=== PATIENT | male | born 1995 | race Caucasian/White ===

== ENCOUNTER 2021-02-09 09:02 | Outpatient (REF) | payer OTHER, SELFPAY ==
[2021-02-09 09:49] LABS: MANUAL DIFF FLAG NO
[2021-02-09 10:21] LABS: Basophils Percent Auto 0.3 % (0-2); Eosinophils Absolute Auto 0.1 X10*3/uL (0.0-0.4); Eosinophils Percent Auto 2.1 % (0-4); Hemoglobin 15.2 g/dl (14.0-18.0); Imm Gran Abs Auto 0.04 X10*3/uL (0.00-0.03); Imm Gran Pct Auto 0.7 % (0.0-0.4); Lymphocytes Absolute Auto 1.5 X10*3/uL (1.2-4.9); Lymphocytes Percent Auto 24.3 % (20-40); Mean Corpuscular Hemoglobin 27.5 pg (27.0-33.0); Mean Corpuscular Volume 83.2 fL (80-98); Mean Platelet Volume 9.7 fL (9.4-12.4); Monocytes Absolute Auto 0.5 X10*3/uL (0.1-1.2); Monocytes Percent Auto 8.1 % (2-11); Neutrophils Absolute Auto 3.9 X10*3/uL (2.0-8.3); Neutrophils Percent Auto 64.5 % (45-73); Platelet Count 287 X10*3/uL (160-400); Red Blood Count 5.53 X10*6/uL (4.60-5.80); Red Cell Distribution Width 12.3 % (11.0-16.0); White Blood Count 6.1 X10*3/uL (4.8-10.8)
[2021-02-09 10:58] LABS: Free T4 (Free Thyroxine) 0.71 ng/dL (0.71-1.85); Thyroid Stimulating Hormone 0.82 uIU/mL (0.32-4.0)
[2021-02-09 11:01] LABS: Alanine Aminotransferase 134 U/L (0-40); Albumin Level 4.5 g/dL (3.5-5.0); Alkaline Phosphatase 128 U/L (39-117); Anion Gap 13 (12-20); Aspartate Amino Transferase 39 U/L (5-37); Bilirubin Total 0.7 mg/dL (0.0-1.0); Blood Urea Nitrogen 15 mg/dL (9-16); Calcium 9.4 mg/dL (8.4-10.2); Carbon Dioxide 28 mmol/L (22-29); Chloride 104 mmol/L (96-108); Cholesterol 182 mg/dL; Estimated Glomerular Filt Rate > 60; Glucose Random 92 mg/dL (60-115); HDL Cholesterol 38 mg/dL; LDL Cholesterol Calculated 116 mg/dl; Potassium 4.7 mmol/L (3.3-5.1); Sodium 140 mmol/L (135-145); Total Protein 7.4 g/dL (6.5-8.0); Triglycerides 140 mg/dL; Uric Acid 5.3 mg/dL (3.4-7.0)
[2021-02-09 11:37] LABS: Erythrocyte Sedimentation Rate 5 MM/HR (0-15)
== END 2021-02-09 09:03 | disposition home or self-care (01) ==
LOC: HO.LAB 09:02
PROVIDERS: PCP Internal Medicine; Visit Provider Internal Medicine
DX: E78.00 Pure hypercholesterolemia, unspecified (principal); K21.9 Gastro-esophageal reflux disease without esophagitis; R61 Generalized hyperhidrosis
CPT/HCPCS: 36415; 80053; 80061; 84439; 84443; 84550; 85025; 85652

== ENCOUNTER 2021-02-18 10:20 | Outpatient (REF) | payer OTHER, SELFPAY ==
[2021-02-18 11:24] LABS: Alanine Aminotransferase 82 U/L (0-40); Albumin Level 4.4 g/dL (3.5-5.0); Alkaline Phosphatase 117 U/L (39-117); Aspartate Amino Transferase 26 U/L (5-37); Bilirubin Direct 0.2 mg/dL (0.0-0.5); Bilirubin Total 0.2 mg/dL (0.0-1.0)
[2021-02-18 11:44] LABS: HBc Num1 0.07 S/CO (0.00-0.79); Hepatitis B Core Antibody Nonreactive (Nonreactive); ~Hepatitis B Surface Antibody NONREACTIVE (Nonreactive)
[2021-02-18 11:49] LABS: HBsAGNum1 0.16 S/CO (0.00-0.99); Hepatitis B Surface Antigen Negative (Negative)
[2021-02-18 12:23] LABS: ~HepC Num1 0.12 S/CO (0.00-0.79); ~Hepatitis C Antibody Nonreactive (Nonreactive)
== END 2021-02-18 10:21 | disposition home or self-care (01) ==
LOC: HO.LAB 10:20
PROVIDERS: PCP Internal Medicine; Visit Provider Internal Medicine
DX: R94.5 Abnormal results of liver function studies (principal); R79.89 Other specified abnormal findings of blood chemistry
CPT/HCPCS: 36415; 80076; 86704; 86706; 86803; 87340

== ENCOUNTER 2021-02-19 14:30 | Outpatient (REF) | payer OTHER, SELFPAY ==
--- NOTE | ~2021-02-19 | US_ITS ---
EXAMINATION: US ABDOMEN LIMITED CLINICAL INFORMATION: Other specified abnormal findings of blood chemistry. COMPARISON: None TECHNIQUE: Real-time imaging of the right upper quadrant abdominal viscera. FINDINGS: PANCREAS: Normal. LIVER: The liver is normal in size. The liver contour is normal. Echotexture is slightly increased. No focal hepatic lesion. There is no intrahepatic biliary duct dilatation seen. GALLBLADDER: Normal. The gallbladder is physiologically distended without evidence of stones, sludge, polyps, wall thickening or pericholecystic fluid. COMMON BILE DUCT: Normal in caliber measuring 0.2 cm in diameter. RIGHT KIDNEY: Normal. No hydronephrosis. No renal calculi or focal parenchymal lesions. The kidney measures 11.0 cm in maximum dimension. FREE FLUID: None. US/US abdomen limited IMPRESSION: Slightly echogenic liver. This is nonspecific but most commonly related to fatty infiltration.
== END 2021-02-19 14:31 | disposition home or self-care (01) ==
LOC: HO.HMGCX 14:30
PROVIDERS: PCP Internal Medicine; Visit Provider Internal Medicine
DX: R79.89 Other specified abnormal findings of blood chemistry (principal)
CPT/HCPCS: 76705

== ENCOUNTER → 2021-11-21 08:41 | Outpatient (BNVA) | payer OTHER, SELFPAY | PROVIDERS: PCP Internal Medicine; Visit Provider Dietitian, Registered | DX: E66.9 Obesity, unspecified (principal); Z68.31 Body mass index [BMI] 31.0-31.9, adult | CPT/HCPCS: 97802 ==

== ENCOUNTER → 2022-01-24 09:17 | Outpatient (BNVA) | payer OTHER, SELFPAY | PROVIDERS: PCP Internal Medicine; Visit Provider Dietitian, Registered | DX: E66.9 Obesity, unspecified (principal); Z68.30 Body mass index [BMI] 30.0-30.9, adult; Z71.3 Dietary counseling and surveillance | CPT/HCPCS: 97803 ==

== ENCOUNTER → 2022-03-27 12:30 | Outpatient (BNVA) | payer OTHER, SELFPAY | PROVIDERS: PCP Internal Medicine; Visit Provider Dietitian, Registered | DX: Z13.89 Encounter for screening for other disorder (principal) | CPT/HCPCS: 97803 ==

== ENCOUNTER → 2022-06-26 13:33 | Outpatient (BNVA) | payer OTHER, SELFPAY | PROVIDERS: PCP Internal Medicine; Visit Provider Dietitian, Registered | DX: E66.9 Obesity, unspecified (principal) | CPT/HCPCS: 97803 ==

== ENCOUNTER 2022-10-18 08:28 | Outpatient (REF) | payer OTHER, SELFPAY ==
[2022-10-18 09:00] LABS: MANUAL DIFF FLAG NO
[2022-10-18 09:49] LABS: Basophils Percent Auto 0.7 % (0-2); Eosinophils Absolute Auto 0.1 X10*3/uL (0.0-0.4); Eosinophils Percent Auto 2.2 % (0-4); Hematocrit 46.4 % (42.0-52.0); Hemoglobin 15.6 g/dl (14.0-18.0); Imm Gran Abs Auto 0.04 X10*3/uL (0.00-0.03); Imm Gran Pct Auto 0.7 % (0.0-0.4); Lymphocytes Absolute Auto 1.6 X10*3/uL (1.2-4.9); Lymphocytes Percent Auto 27.2 % (20-40); Mean Corpuscular HGB Conc 33.6 g/dl (31.0-36.0); Mean Corpuscular Hemoglobin 27.5 pg (27.0-33.0); Mean Corpuscular Volume 81.8 fL (80.0-98.0); Mean Platelet Volume 9.7 fL (9.4-12.4); Monocytes Absolute Auto 0.6 X10*3/uL (0.1-1.2); Monocytes Percent Auto 9.3 % (2-11); Neutrophils Absolute Auto 3.6 x10*3/uL (2.0-8.3); Neutrophils Percent Auto 59.9 % (45-73); Platelet Count 309 X10*3/uL (160-400); Red Blood Count 5.67 X10*6/uL (4.60-5.80); Red Cell Distribution Width 12.7 % (11.0-16.0); White Blood Count 5.9 X10*3/uL (4.8-10.8)
[2022-10-18 10:18] LABS: Estimated Average Glucose 105 mg/dL; Hemoglobin A1c % 5.3 %
[2022-10-18 10:49] LABS: Alanine Aminotransferase 112 U/L (0-40); Albumin Level 4.7 g/dL (3.5-5.0); Alkaline Phosphatase 120 U/L (39-117); Anion Gap 15 (12-20); Aspartate Amino Transferase 33 U/L (5-37); Bilirubin Total 0.7 mg/dL (0.0-1.0); Blood Urea Nitrogen 15 mg/dL (9-16); Carbon Dioxide 26 mmol/L (22-29); Chloride 103 mmol/L (96-108); Cholesterol 210 mg/dL; Estimated Glomerular Filt Rate > 60; Glucose Random 95 mg/dL (60-115); HDL Cholesterol 35 mg/dL; LDL Cholesterol Calculated 145 mg/dl; Potassium 4.3 mmol/L (3.3-5.1); Sodium 140 mmol/L (135-145); Total Protein 7.6 g/dL (6.5-8.0); Triglycerides 152 mg/dL
[2022-10-18 10:59] LABS: Free T4 (Free Thyroxine) 0.81 ng/dL (0.71-1.85); Thyroid Stimulating Hormone 0.83 uIU/mL (0.32-4.0)
[2022-10-20 05:09] LABS: HBS Num1 1.01 mIU/mL (0-7.99); HBc Num1 0.07 S/CO (0.00-0.79); HIV AB/AG Nonreactive (Nonreactive); HIV Num 1 0.07 S/CO (0.00-0.99); Hepatitis B Core Antibody Nonreactive (Nonreactive); Hepatitis B Surface Antigen Negative (Negative); ~HepC Num1 0.08 S/CO (0.00-0.79); ~Hepatitis B Surface Antibody NONREACTIVE (Nonreactive); ~Hepatitis C Antibody Nonreactive (Nonreactive)
[2022-10-20 05:17] LABS: Syphilis Screen Nonreactive (Nonreactive)
[2022-10-24 15:11] LABS: Glucose-6-Phosphate Dehydrogen 25.7 U/g Hgb (7.0-20.5)
== END 2022-10-18 08:29 | disposition home or self-care (01) ==
LOC: HO.LAB 08:28
PROVIDERS: PCP Internal Medicine; Visit Provider Internal Medicine
DX: Z11.4 Encounter for screening for human immunodeficiency virus [HIV] (principal); K76.0 Fatty (change of) liver, not elsewhere classified; E78.00 Pure hypercholesterolemia, unspecified; R79.89 Other specified abnormal findings of blood chemistry
CPT/HCPCS: 36415; 80053; 80061; 82955; 83036; 84439; 84443; 85025; 86704; 86706; 86780; 86803; 87340; 87389

== ENCOUNTER 2022-10-22 08:48 | Outpatient (REF) | payer OTHER, SELFPAY | END 2022-10-22 08:49 | disposition home or self-care (01) | LOC: HO.LAB 08:48 | PROVIDERS: PCP Internal Medicine; Visit Provider Internal Medicine | DX: Z13.89 Encounter for screening for other disorder (principal) ==

== ENCOUNTER 2022-10-24 11:30 | Outpatient (REF) | payer OTHER, SELFPAY ==
[2022-10-27 00:11] LABS: TS Negative Control Passed; TS Panel A 0; TS Panel B 0; TS Positive Control Passed; TSpotTB Negative (Negative)
== END 2022-10-24 11:31 | disposition home or self-care (01) ==
LOC: HO.LAB 11:30
PROVIDERS: PCP Internal Medicine; Visit Provider Internal Medicine
DX: Z11.1 Encounter for screening for respiratory tuberculosis (principal); K76.0 Fatty (change of) liver, not elsewhere classified
CPT/HCPCS: 36415; 86481

== ENCOUNTER 2022-11-28 17:40 | Outpatient (REF) | payer OTHER, SELFPAY ==
[2022-11-28 18:32] LABS: Influenza A PCR NEGATIVE (Negative); Influenza B PCR NEGATIVE (Negative); Resp Syncy Virus RNA Qual PCR NEGATIVE (Negative); SARS COV2 PCR INHOUSE NEGATIVE (Negative)
== END 2022-11-28 17:41 | disposition home or self-care (01) ==
LOC: HO.LNP 17:40
PROVIDERS: Visit Provider Physician Assistant Medical
DX: Z20.822 Contact with and (suspected) exposure to COVID-19 (principal); R05.9 Cough, unspecified
CPT/HCPCS: 0241U

== ENCOUNTER 2022-12-20 09:01 | Outpatient (REF) | payer OTHER, SELFPAY ==
[2022-12-20 11:03] LABS: HBc Num1 0.06 S/CO (0.00-0.79); HBsAGNum1 0.31 S/CO (0.00-0.99); HIV AB/AG Nonreactive (Nonreactive); HIV Num 1 0.06 S/CO (0.00-0.99); Hepatitis B Core Antibody Nonreactive (Nonreactive); Hepatitis B Surface Antigen Negative (Negative); ~HepC Num1 0.11 S/CO (0.00-0.79); ~Hepatitis B Surface Antibody NONREACTIVE (Nonreactive); ~Hepatitis C Antibody Nonreactive (Nonreactive)
[2022-12-25 20:38] LABS: Treponema pallidum Ab FTA ABS Nonreactive (Nonreactive)
[2022-12-26 16:28] LABS: FIB-ALT 83 U/L (9-46); FIB-Alpha-2-Macroglobulin 170 mg/dL (106-279); FIB-Apolipoprotein A1 141 mg/dL (94-176); FIB-GGT 68 U/L (3-70); FIB-Haptoglobin 182 mg/dL (43-212); FIB-Total Bilirubin 0.5 mg/dL (0.2-1.2); Liver Fibrosis Score 0.12; Liver Fibrosis Stage F0; Nec Inflam Act Grade A1-A2; Nec Inflam Act Score 0.42
== END 2022-12-20 09:02 | disposition home or self-care (01) ==
LOC: HO.LAB 09:01
PROVIDERS: PCP Internal Medicine; Visit Provider Internal Medicine
DX: Z11.4 Encounter for screening for human immunodeficiency virus [HIV] (principal); R79.89 Other specified abnormal findings of blood chemistry; K76.0 Fatty (change of) liver, not elsewhere classified
CPT/HCPCS: 36415; 81596; 86704; 86706; 86780; 86803; 87340; 87389

== ENCOUNTER → 2023-03-09 13:54 | Outpatient (BNVA) | payer OTHER, SELFPAY | PROVIDERS: PCP Internal Medicine; Visit Provider Dietitian, Registered | DX: E66.9 Obesity, unspecified (principal); Z68.33 Body mass index [BMI] 33.0-33.9, adult | CPT/HCPCS: 97803 ==

== ENCOUNTER 2023-08-13 10:05 | Outpatient (AMB) | payer OTHER, SELFPAY ==
[2023-08-13 10:08] VITALS: BP 150/90; PULSE 81; O2SAT 97; BMI 34.0
--- NOTE | 2023-08-13 10:08 | MHC.PC.OV ---
Vital Signs 08/13/23 10:08 Height 6 ft Weight 251 lb 0.2 oz BMI 34.0 BP 150/90 H Blood Pressure Location Lt brachial Position Sitting Pulse 81 Pulse Source Pulse Oximeter Temp Source Skin Pulse Oximetry (%) 97 Oxygen Delivery Method Room Air Intake Visit Reasons: Discuss PMFLA paperwork Donkey Doctor Required: No Allergies No Known Allergies Allergy (Verified 08/13/23 10:23) Medication List - Last Reconciled 08/13/23 by TENZIN Youngblood escitalopram oxalate 10 mg PO DAILY Tobacco use date assessed: 08/13/23 Dental Screening Dental Screen Date: 08/13/23 Did you have a dental visit in the last 12 months?: Yes Did you have a dental problem in the last 6 months where you did not have access to dental care?: No Was dental information given to patient?: Patient has dentist HPI Discuss PMFLA paperwork HPI Details Patient is a 27-year-old male who presents today for an office visit to discuss FMLA paperwork for 5 weeks due to his mental health. Patient of Dr. Fang. Medical history significant for GERD obesity, adjustment disorder, anxiety, depression. Patient reports that he did have counseling in the past, and 5 months ago his insurance was changed and he is now on a waiting list for counseling at [facility]. Patient reports that he is compliant with escitalopram 10 mg daily. 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 PHQ-9 score 17, KYLE-7 score 16, patient denies SI. Patient reports that his symptoms are anxiousness/restlessness, irritability, sadness, constant worry, a perpetual sense of fear, inability to concentrate, lack of motivation, reduced work performance, unbalanced personal life, insomnia, frequent headaches, muscle pains, changes in appetite, nausea, digestive problems. He reports the symptoms for the past some time now. Patient also reports left ear mild discomfort for the past some time. [facility] Medical History (Updated 08/13/23 @ 12:52 by TENZIN Youngblood) Ingrowing nail, right great toe Impacted cerumen of both ears Hyperhidrosis Hyperhidrosis ADHD Asthma Surgical History History of cataract surgery Social History Housing: Apartment Alcohol intake: current Patient Tobacco Use Status: Never used Tobacco Years Smoked: 2 cigarettes in li e-Cigarette/Vaping Use: Never Used Second Hand Smoke Exposure: No Current occupational status: employed Cognitive needs: No Hearing needs: No Vision needs: Yes Questionnaire PHQ-9 Over the last 2 weeks, how often have you been bothered by any of the following problems? 1. Little interest or pleasure in doing things: more than half the days 2. Feeling down, depressed, or hopeless: more than half the days 3. Trouble falling or staying asleep, or sleeping too much: more than half the days 4. Feeling tired or having little energy: more than half the days 5. Poor appetite or overeating: nearly every day 6. Feeling bad about yourself - or that you are a failure or have let yourself or your family down: nearly every day 7. Trouble concentrating on things, such as reading the newspaper or watching television: several days 8. Moving or speaking so slowly that other people could have noticed. Or the opposite - being so fidgety or restless that you have been moving around a lot more than usual: more than half the days 9. Thoughts that you would be better off or of hurting yourself in some way: not at all Total score: 17 Depression Screening Interpretation: Positive Depression Screening Follow-up: Other (on waiting list for counseling at [facility] ) [address]94 - PHQ-9 Billing: Yes Source: Developed by Drs. Calvin Em, Alejandra Keys, Randall Hussein and colleagues, with an educational ld from [employer]. Thrive Questionnaire Date Thrive assessed: 08/13/23 I am a: Patient What is your living situation today?: I have a steady place to live Within the past 12 months, did the food you bought not last and you didn't have the money to get more?: Never true Within the past 12 months, did you worry whether your food would run out before you got money to buy more?: Never true Currently or been in a relationship where the following occur: no concerns reported AUDIT C Alcohol Use Questionnaire (AUDIT-C) 1. How often do you have a drink containing alcohol?: Monthly or less 2. How many drinks containing alcohol do you have on a typical day when you are drinking?: 1 or 2 3. How often do you have six or more drinks on one occasion?: Never Total Score: 1 Score Reviewed/Action Taken: No KYLE-7 AMB Questionnaire KYLE-7 Date KYLE - 7 assessed: 08/13/23 Feeling nervous, anxious, or on edge: 3 = Nearly every day Not being able to stop or control worryin = Nearly every day Worrying too much about different things: 3 = Nearly every day Trouble relaxin = Several days Being so restless that it is hard to sit still: 2 = More than half the days Becoming easily annoyed or irritable: 3 = Nearly every day Feeling afraid as if something awful might happen: 1 = Several days Total KYLE-7 score (0-4 normal; 5-9 mild; 10-14 moderate; 15-21 severe): 16 Source: Developed by Drs. Calvin Em, Alejandra Keys, Randall Hussein and colleagues, with an educational ld from [employer]. KYLE-7 Assessment Billing KYLE-7 Assessment Tool: KYLE-7 Assessment 24009 Review of Systems Const Denies body aches, Denies chills, Denies fever(s) and Reports headache(s) (Intermittent) Eyes Denies change in vision ENT Reports as per HPI, Denies dizziness, Reports headache(s) (Intermittent), Denies nasal discharge, Denies sinus pain and Denies sore throat Card Denies chest pain, Denies edema, Denies lightheadedness and Denies dyspnea Resp Denies cough, Denies dyspnea and Denies wheezing GI Denies abdominal pain and Reports nausea Denies dysuria Musc Denies myalgias Skin/Breast Denies rash Neuro Denies dizziness and Reports headache(s) (Intermittent) Psych Reports as per HPI, Reports anxiety and Reports depression Aller/Immun Denies wheezing Physical exam (Primary Care) Vital Signs: Last Vital Signs Pulse 81 08/13/23 10:08 BP 150/90 H 08/13/23 10:08 Pulse Ox 97 08/13/23 10:08 Oxygen Delivery Method Room Air 08/13/23 10:08 BMI result Body Mass Index 34.0 Tobacco/Smoking Status: Tobacco use Status Tobacco use date assessed 08/13/23 08/13/23 10:16 Patient Tobacco Use Status Never used Tobacco 09/14/23 10:16 e-Cigarette/Vaping Use Never Used 08/13/23 10:16 PHQ-9: PHQ-9 Score PHQ-9: Total score 17 08/13/23 10:21 Depression Screening Interpretation: Positive Depression Screening Follow-up: Other (on waiting list for counseling at [facility] ) Thrive Assessment: Date of Thrive Assessment Date Thrive assessed 08/13/23 08/13/23 10:21 Currently or been in a relationship where the following occur: no concerns reported Const General: cooperative and no acute distress Orientation/consciousness: patient oriented x3 HENMT Other: Right TM normal Left TM with mild fluid behind TM, no erythema Head: Yes normocephalic and Yes atraumatic Throat: Yes posterior oropharynx normal Eyes General: appearance normal, both eyes and all related structures Neck Neck: Yes normal visual inspection, Yes full ROM and Yes no lymphadenopathy Resp Effort & Inspection: normal respiratory effort and able to speak in complete sentences Auscultation: clear to auscultation bilaterally, no crackles, no rales, no rhonchi and no wheezes Cardio Rate: regular rate Rhythm: regular rhythm Heart sounds: S1 normal heart sound present and S2 normal heart sound present GI Auscultation: normal bowel sounds Skin General skin exam: no rashes or lesions noted Neuro General: patient oriented x3 Gait exam (Neuro): Normal gait present Extrem General: Yes full ROM and No edema Assessment and Plan Assessment & Plan (1) Depression: Code(s): F32.A - Depression, unspecified Qualifiers: Depression Type: other depression Qualified Code(s): F32.89 - Other specified depressive episodes Plan: Continue escitalopram 10 mg daily Patient is on waiting list for therapist at [facility] Patient also has a referral to Psychiatry, will follow-up on this FMLA provided for 5 weeks for mental health, see scanned documents. Patient reports that he has crisis phone number (2) Anxiety: Code(s): F41.9 - Anxiety disorder, unspecified Plan: Same as above (3) Discomfort of left ear: Code(s): H92.02 - Otalgia, left ear Plan: No need for antibiotic Encouraged patient to try [id number] Flonase nasal spray daily for 2 weeks and Claritin 1 tablet daily for 1 week. Patient agreed with the plan Plan Keep appointment with PCP as scheduled or follow-up sooner as needed Coding Level of Care Code Est Pt Level 3 (05798) Diagnoses Other depression F32.89 Depression Type: other depression Anxiety F41.9 Discomfort of left ear H92.02 Additional Codes KYLE-7 Assessment Billing - KYLE-7 Assessment Tool: KYLE-7 Assessment 47983 ([id number])
== END 2023-08-13 10:46 | disposition home or self-care (01) ==
PROVIDERS: PCP Internal Medicine; Visit Provider Nurse Practitioner Family
DX: F32.89 Other specified depressive episodes (principal); F41.9 Anxiety disorder, unspecified; H92.02 Otalgia, left ear
CPT/HCPCS: 99213

== ENCOUNTER 2023-08-31 14:28 | Outpatient (AMB) | payer OTHER, SELFPAY ==
[2023-08-31 14:33] VITALS: BMI 34.2
--- NOTE | 2023-08-31 14:33 | A.OFFVIS_ITS ---
Intake VS Expanded 08/31/23 14:33 Height 6 ft Weight 252 lb 3.341 oz BMI 34.2 Intake Visit Reasons: obesity/high chol/LVM Allergies No Known Allergies Allergy (Verified 08/13/23 10:23) HPI Nutrition Presentation Details Pt presents for MNT for obesity . Pt has hx of depression, anxiety. Pt acknowledges having increased appetite, his girlfriend helps him with meal preparation and portioning of foods. Pt reports he will soon to be a father, girlfriend is 6 month preg He reports he is trying to participate in physical activity : 2-3 times/wk, 15- 20 minutes cardio/weight lifting 200lbs Pt reports keeping track of calories helped in the past but stopped keeping track d/t anxiety He acknowledges choosing second servings of meals and increasing on snacks (fritters) Pt recognizes meal patterns that have changed: was choosing vegetarian meals more often and he is no longer including fish , notices having second servings of meals Most Recent Diabetes Results: Cholesterol 210 mg/dL 10/18/22 HDL Cholesterol 35 mg/dL 10/18/22 Triglycerides 152 mg/dL 10/18/22 Creatinine 1.14 mg/dL (0.5-1.4) 10/18/22 Blood Urea Nitrogen 15 mg/dL (9-16) 10/18/22 Sodium 140 mmol/L (135-145) 10/18/22 Potassium 4.3 mmol/L (3.3-5.1) 10/18/22 Chloride 103 mmol/L (96-108) 10/18/22 Carbon Dioxide 26 mmol/L (22-29) 10/18/22 Calcium 10.0 mg/dL (8.4-10.2) 10/18/22 AST 33 U/L (5-37) 10/18/22 ALT 112 U/L (0-40) H 10/18/22 Total Protein 7.6 g/dL (6.5-8.0) 10/18/22 Albumin 4.7 g/dL (3.5-5.0) 10/18/22 [facility] Medical History Ingrowing nail, right great toe Impacted cerumen of both ears Hyperhidrosis Hyperhidrosis ADHD Asthma Surgical History History of cataract surgery Social History Housing: Apartment Alcohol intake: current Patient Tobacco Use Status: Never used Tobacco Years Smoked: 2 cigarettes in li e-Cigarette/Vaping Use: Never Used Second Hand Smoke Exposure: No Current occupational status: employed Cognitive needs: No Hearing needs: No Vision needs: Yes Assessment & Plan Assessment & Plan (1) Obesity (BMI 30-39.9): Code(s): E66.9 - Obesity, unspecified Plan Reduction of calories by 500 est kcal needs <2500 [address] jeor est fluid needs 25 ml/kg bw: 2600 ml/d est prot needs as per 1 g/kg bw: 106 g/d fiber: 30-38 g as tolerated NA< 2000 mg/d Educate patient on: (R= Reviewed, V = verbalizes understanding N/R= Needs review N/A= not applicable) * Food sources of carbohydrates and serving adequate serving sizes : R V * Difference between complex carbohydrates and simple carbohydrates, role of fiber: R V * Differences between fats (MUFA/PUFA/saturated fats, trans fats) and food sources of various fats: R V * Food sources of sodium and salt and healthy modifications for heart health and kidney health: R V * Vitamins and minerals: R V * How to interpret food labels: R V * Healthy Plate method concept: R V * Physical activity: benefits and precaution: R V Patient Instructions: Have a meal replacement instead of skipping melas have fish at least twice a week, replacing higher fat protein foods (beef/pork) Reduce on fried food (1 fritter vs 2) Coding Level of Care Code Nutr Indiv Subseq (16120) Diagnoses Obesity (BMI 30-39.9) E66.9 Time Spent (min) 30
== END 2023-08-31 15:13 | disposition home or self-care (01) ==
PROVIDERS: PCP Internal Medicine; Referring Provider Internal Medicine; Visit Provider Dietitian, Registered
DX: E66.9 Obesity, unspecified (principal)

== ENCOUNTER → 2023-08-31 14:28 | Outpatient (BNVA) | payer OTHER, SELFPAY | PROVIDERS: Visit Provider Dietitian, Registered | DX: E66.9 Obesity, unspecified (principal); Z68.34 Body mass index [BMI] 34.0-34.9, adult; Z71.3 Dietary counseling and surveillance | CPT/HCPCS: 97803 ==

== ENCOUNTER 2023-10-29 12:32 | Outpatient (AMB) | payer OTHER, SELFPAY ==
[2023-10-29 12:36] VITALS: BP 128/76; PULSE 92; O2SAT 98; BMI 33.6
--- NOTE | 2023-10-29 12:36 | MHC.PC.OV ---
Vital Signs 10/29/23 12:36 Height 6 ft Weight 248 lb BMI 33.6 BP 128/76 Blood Pressure Location Lt brachial Position Sitting Pulse 92 Pulse Source Pulse Oximeter Pulse Oximetry (%) 98 Oxygen Delivery Method Room Air Intake Visit Reasons: Physical exam Allergies No Known Allergies Allergy (Verified 10/29/23 12:37) Medication List - Last Reconciled 10/29/23 by Isaura Fang MD escitalopram oxalate 10 mg PO DAILY Tobacco use date assessed: 08/13/23 Dental Screening Dental Screen Date: 10/29/23 Did you have a dental visit in the last 12 months?: Yes Did you have a dental problem in the last 6 months where you did not have access to dental care?: No Was dental information given to patient?: Patient has dentist HPI Physical exam HPI Details 27-year-old obese male with hypercholesterolemia fatty liver GERD and adjustment disorder last seen in October 2022. Patient is here for physical exam review of the notes patient was seen by the nurse practitioner in July 2023 regarding the FMLA due to mental health. Did have some counseling before on escitalopram. groin irritaiton. [facility] Medical History Ingrowing nail, right great toe Impacted cerumen of both ears Hyperhidrosis Hyperhidrosis ADHD Asthma Surgical History History of cataract surgery Social History (Updated 10/29/23 @ 12:54 by Isaura Fang MD) Housing: Apartment Alcohol intake: current Comment: once Q 3 months 1-2 cups Patient Tobacco Use Status: Never used Tobacco Years Smoked: 2 cigarettes in li e-Cigarette/Vaping Use: Never Used Second Hand Smoke Exposure: No Current occupational status: employed Cognitive needs: No Hearing needs: No Vision needs: Yes Questionnaire PHQ-9 Over the last 2 weeks, how often have you been bothered by any of the following problems? 1. Little interest or pleasure in doing things: more than half the days 2. Feeling down, depressed, or hopeless: more than half the days 3. Trouble falling or staying asleep, or sleeping too much: more than half the days 4. Feeling tired or having little energy: more than half the days 5. Poor appetite or overeating: nearly every day 6. Feeling bad about yourself - or that you are a failure or have let yourself or your family down: nearly every day 7. Trouble concentrating on things, such as reading the newspaper or watching television: several days 8. Moving or speaking so slowly that other people could have noticed. Or the opposite - being so fidgety or restless that you have been moving around a lot more than usual: more than half the days 9. Thoughts that you would be better off or of hurting yourself in some way: not at all Total score: 17 Depression Screening Interpretation: Positive Depression Screening Follow-up: Other (on waiting list for counseling at [facility] ) Depression Screening Done: Yes 31417 - PHQ-9 Billing: Yes Source: Developed by Drs. Calvin Em, Alejandra Keys, Randall Hussein and colleagues, with an educational ld from [employer]. Thrive Questionnaire Date Thrive assessed: 08/13/23 AUDIT C Alcohol Use Questionnaire (AUDIT-C) 1. How often do you have a drink containing alcohol?: Monthly or less 2. How many drinks containing alcohol do you have on a typical day when you are drinking?: 1 or 2 3. How often do you have six or more drinks on one occasion?: Never Total Score: 1 Score Reviewed/Action Taken: No KYLE-7 AMB Questionnaire KYLE-7 Date KYLE - 7 assessed: 08/13/23 Source: Developed by Drs. Calvin Em, Alejandra Keys, Randall Hussein and colleagues, with an educational ld from [employer]. Review of Systems Const Denies poor appetite and Denies weakness Eyes Denies no additional complaints ENT Reports Normal hearing present, Denies dizziness, Denies nasal congestion, Denies tinnitus and Denies sore throat Card Denies chest pain, Denies syncope, Denies rapid heart rate and Denies dyspnea Resp Denies cough and Denies dyspnea GI Denies change in stool character, Reports constipation, Denies diarrhea, Denies nausea and Denies vomiting Denies dysuria and Denies urinary frequency Neuro Reports Normal hearing present, Denies confusion, Denies dizziness, Denies syncope and Denies weakness Psych Denies confusion Physical exam (Primary Care) Vital Signs: Oxygen Delivery Method Room Air 10/29/23 12:36 Tobacco/Smoking Status: Tobacco use Status Tobacco use date assessed 08/13/23 10/29/23 12:38 Patient Tobacco Use Status Never used Tobacco 10/29/23 12:38 e-Cigarette/Vaping Use Never Used 10/29/23 12:38 PHQ-9: PHQ-9 Score PHQ-9: Total score 17 10/29/23 12:38 Depression Screening Interpretation: Positive Depression Screening Follow-up: Other (on waiting list for counseling at [facility] ) Thrive Assessment: Date of Thrive Assessment Date Thrive assessed 08/13/23 10/29/23 12:38 Const General: No confusion Orientation/consciousness: No confusion HENMT Head: Yes normocephalic Ears: external ears normal and TM's normal bilaterally Face and sinus: Yes normal facial exam Mouth: moist mucous membranes Throat: Yes tonsils normal Eyes Conjunctivae: conjunctivae normal Pupils: Equal, round and reactive pupils present and Pupil accommodation reflex normal Direct Ophthalmoscopy: normal light reflex Neck Neck: No lymphadenopathy Thyroid: Thyroid normal Chest Chest palpation & inspection: normal inspection of the chest Resp Effort & Inspection: normal respiratory effort and no audible wheezes Auscultation: clear to auscultation bilaterally, no crackles, no wheezes and lung sounds not diminished Cardio Rate: regular rate Rhythm: regular rhythm Peripheral pulses: radial pulses present and dorsalis pedis present GI Palpation (GI): no masses Auscultation: normal bowel sounds and normoactive bowel sounds Rectal Exam - Male: Yes deferred Other: Noted erythematous groin rash 1 cm x 4 cm bilateral Skin General skin exam: no rashes or lesions noted Rashes: no rashes Neuro General: No confusion Cranial nerves: Yes Equal, round and reactive pupils present and Yes Normal hearing present Cognition (Neuro): normal cognition Gait exam (Neuro): Normal gait present Motor exam (neuro): 5/5 motor strength present throughout Deep tendon reflexes (DTR's): Right brachioradialis reflex intensity grade: 2+, Left brachioradialis reflex intensity grade: 2+, Right patellar reflex intensity grade: 2+ and Left patellar reflex intensity grade: 2+ Extrem General: No edema Assessment and Plan Assessment & Plan (1) Annual physical exam: Code(s): Z00.00 - Encounter for general adult medical examination without abnormal findings (2) Obesity (BMI 30-39.9): Code(s): E66.9 - Obesity, unspecified Plan: Diet and exercise (3) GERD (gastroesophageal reflux disease): Code(s): K21.9 - Gastro-esophageal reflux disease without esophagitis Plan: Avoid the foods that causes that usually spicy foods, tomato products, juices, coffee, soda and foods that your sensitive to. After eating do not lie down, allow 3-4 hours before in lie down. And keep the head of bed above 30 degrees to avoid the acid from going up. (4) Fatty liver: Code(s): K76.0 - Fatty (change of) liver, not elsewhere classified Plan: Low-fat diet and exercise (5) Adjustment disorder: Comment: Therapist Fred OLIVA Q 2 week, NOW (09/2023) [facility] Code(s): F43.20 - Adjustment disorder, unspecified Plan: Continue with counseling and therapy (6) Hypercholesterolemia: Code(s): E78.00 - Pure hypercholesterolemia, unspecified Plan: Avoid fried foods, chicken skin, eggs, butter margarine, pastries and meat. Be it pork or beef they have a lot of cholesterol LDL goal of less than 130 and triglyceride of less than 150 (7) Tinea cruris: Code(s): B35.6 - Tinea cruris Orders: Orders Complete Blood Count Auto Diff Today E78.00 - Pure hypercholesterolemia, unspecified Thyroid Stimulating Hormone Today E78.00 - Pure hypercholesterolemia, unspecified Lipid Panel Today E78.00 - Pure hypercholesterolemia, unspecified Comprehensive Met. Panel Today E78.00 - Pure hypercholesterolemia, unspecified Free T4 (Free Thyroxine) Today E78.00 - Pure hypercholesterolemia, unspecified Vitamin B12 and Folate Today E78.00 - Pure hypercholesterolemia, unspecified Medications: New clotrimazole 1% 1 appl topical BID 4 weeks 45 grams 0RF B35.6 - Tinea cruris miconazole nitrate 2% (Zeasorb AF) 1 appl topical BID 85 grams 1RF B35.6 - Tinea cruris Coding Level of Care Code Est Pt Prev Care 18-39y(71814) Diagnoses Annual physical exam Z00.00 Obesity (BMI 30-39.9) E66.9 GERD (gastroesophageal reflux disease) K21.9 Fatty liver K76.0 Adjustment disorder F43.20 Hypercholesterolemia E78.00 Tinea cruris B35.6
== END 2023-10-29 13:08 | disposition home or self-care (01) ==
PROVIDERS: Visit Provider Internal Medicine
DX: Z00.00 Encounter for general adult medical examination without abnormal findings (principal); E66.9 Obesity, unspecified; Z68.33 Body mass index [BMI] 33.0-33.9, adult; K21.9 Gastro-esophageal reflux disease without esophagitis; K76.0 Fatty (change of) liver, not elsewhere classified; F43.20 Adjustment disorder, unspecified; E78.00 Pure hypercholesterolemia, unspecified; B35.6 Tinea cruris
CPT/HCPCS: 99395

== ENCOUNTER 2024-05-30 08:36 | Inpatient (IN) | payer OTHER, SELFPAY ==
[2024-05-30] VITALS (7 sets, daily range): BP systolic 106–150; BP diastolic 61–92; PULSE 80–94; RESP 12–20; TEMP 36.4–36.8; O2SAT 96–99; BMI 33.2
--- NOTE | ~2024-05-30 | XR_ITS ---
EXAMINATION: XR CHEST CLINICAL INFORMATION: Chest pain COMPARISON: None available. TECHNIQUE: Frontal view of the chest was obtained. FINDINGS: vascularity. LUNGS: Lungs are clear. No pneumothorax is seen. BONES: Bony skeleton is intact. XR/XR chest 1V IMPRESSION: Normal chest x-ray.
--- NOTE | ~2024-05-30 | CT_ITS ---
EXAMINATION: CT ANGIOGRAM CHEST CLINICAL INFORMATION: Severe chest pain with radiation to the back COMPARISON: Chest radiograph 05/30/2024 TECHNIQUE: Multiple axial images were obtained through the chest after the administration of 70 mL of Omnipaque 350 intravenous contrast. Extensive vascular post-processing including two-dimensional and three-dimensional reformatted images were created and reviewed on an independent workstation. This CT examination was performed using dose optimization techniques as appropriate, variously including the following: *Automated exposure control *Adjustment of mA and/or kV according to patient size (this includes techniques or standardized protocols for targeted exams where dose is matched to indication/reason for exam; i.e. extremities or head) *Use of iterative reconstruction technique DLP: 403 mGy-cm FINDINGS: The study is mildly motion degraded which partially limits evaluation at the level of the aortic root and proximal ascending aorta. The thoracic aorta is normal in caliber and there is no evidence of dissection or other acute aortic syndrome. There is a three-vessel branching orientation of the aortic arch. The origins the arch vessels and their visualized segments are well-opacified, normal in caliber, and otherwise unremarkable. The partially visualized abdominal aorta is normal in caliber as well. No evidence of aneurysm, dissection or other acute aortic syndrome. The origins of the celiac and superior mesenteric arteries are widely patent and have expected branching pattern. Visualized renal arteries are well opacified without stenosis. The pulmonary arteries are not dilated. The study is not optimized to evaluate the pulmonary arteries, no large central emboli are seen. There is an overall unremarkable appearance of the central venous structures. Lungs well expanded. There is no pulmonary parenchymal mass, consolidation, or discrete suspicious pulmonary nodule. The central and peripheral airways are patent and normal appearing. No pleural effusion. No pleural thickening. The heart is not enlarged. There is no pericardial effusion or pericardial thickening. There are no pathologically enlarged thoracic lymph nodes. The axillae are unremarkable. The visualized thyroid is unremarkable. The structures of the chest wall, including the bones are within normal limits. The incompletely visualized upper abdomen is unremarkable for any significant abnormality. CT/CT angio chest aorta IMPRESSION: Essentially normal CT angiogram of the chest. No definite etiology for patient's current presentation is identified. Fleischner guidelines were followed.
--- NOTE | 2024-05-30 07:00 | CA_ITS ---
Transthoracic Echocardiogram Patient (Last, First, Middle): Mya Hopkins, Gender: Male Date of : 1995 Age: 28 Procedure Date: 05/30/2024 Procedure Type: Transthoracic Echocardiogram Location: ER Height: 182. 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 The visually estimated ejection fraction is between 55-60%. - There is no evidence of regional wall motion abnormalities. - No obvious valvular pathology seen on this study. Findings Procedure Information Contrast agent, definity, is being given per protocol without apparent complications. Left Ventricle Normal left ventricular cavity size. There is normal left ventricular wall thickness. The left ventricular systolic function is normal. The visually estimated ejection fraction is between 55-60%. There is no evidence of regional wall motion abnormalities. Diastolic function is normal for age. Right Ventricle Normal right ventricular cavity size and systolic function. Atria Both atria are normal in size. Aortic Valve There is a normal trileaflet aortic valve. There is no aortic valve stenosis. There is no aortic valve regurgitation. Mitral Valve The mitral valve appears normal. There is no mitral valve regurgitation. There is no mitral valve stenosis. Pulmonic Valve The pulmonic valve is likely normal. Tricuspid Valve Normal tricuspid valve structure. There is trace tricuspid valve regurgitation. There is no evidence of pulmonary hypertension. Great Vessels The asc aorta is normal in size. Venous The inferior vena cava is normal in size and collapses greater than 50% with inspiration. Pericardium/Pleural There is no evidence of pericardial effusion. Prior Study Comparison No prior study available for comparison. Recommendations, Care & Conclusions No obvious valvular pathology seen on this study. Measurements 2D Linear Measurements IVSd: 0.89 0.6-0.9/0.6-1.0 cm LVIDd: 4.85 3.9-5.3/4.2-5.9 cm LVIDd Index: 2.10 2.4-3.2/2.2-3.1 cm/m2 LVIDs: 3.31 2.0-3.6 cm LVPWd: 1.05 0.7-1.1 cm LA Diam: 3.40 2.7-3.8/3.0-4.0 cm LAIDs Index: 1.47 1.5-2.3 cm/m2 LV Mass: 206.20 67-162/88-224 g LV Mass Index: 89.27 43-95/49-115 g/m2 LVOT Diam: 1.90 3.0+(-)1.3 cm Mitral Valve MV Pk E: 0.74 MV PK A: 0.57 MV Decel Time: 261.00 E/A: 1.30 E'Lateral: 12.20 E'Medial: 9.79 E/E' Med: 7.60 E/E' Lat: 6.10 PHT: 76.00 MVA PHT: 2.89 Decel [place]: 2.84 Aortic Valve AoV Pk Jorje: 1.41 AoV Mn Jorje: 1.01 AoV VTI: 0.26 AoV Pk Grad: 8.00 Aov Mn Grad: 5.00 MARTI Cont.VTI: 2.40 LVOT LVOT Pk Jorje: 1.23 LVOT Mn Jorje: 0.88 LVOT VTI: 0.22 LVOT Pk Grad: 6.00 LVOT Mn Grad: 4.00 LVOT Diam: 1.90 LVOT Area: 2.84 Diastolic Function MV Pk E: 0.74 MV Pk A: 0.57 E/A: 1.30 E'Medial: 9.79 E/E' Med: 7.60 E' Laterial: 12.20 E/E' Lat: 6.10 Right Ventricle TAPSE (mm): 17.80 TVS' Jorje: 10.60 Tricuspid Valve TR Pk Jorje: 1.90 TR Pk Grad: 14.00 RA Press: 3.00 RVSP: 17.00 Great Vessels Aorta Sinus of Valsalva: 3.10 2.0-3.5 cm Ao Asc: 2.70 2.1-3.4 cm Pulmonary Valve PV Pk Jorje: 1.02 Peak PV Grad: 4.00 Updated in Other Vendor System with Status of Final Kartik Baltazar MD electronically signed on 05/30/2024 12:32:54 PM with status of Final
--- NOTE | 2024-05-30 08:37 | ECG_ITS ---
Test Reason : CHEST PAIN Blood Pressure : / mmHG Vent. Rate : 081 BPM Atrial Rate : 081 BPM P-R Int : 118 ms QRS Dur : 084 ms QT Int : 368 ms P-R-T Axes : 010 031 033 degrees QTc Int : 427 ms Normal sinus rhythm Normal ECG No previous ECGs available Referred By: Generic ED Physician Electronically Signed By:SAMEER DURON
[2024-05-30 09:04] LABS: MANUAL DIFF FLAG NO
[2024-05-30 09:08] LABS: Basophils Absolute Auto 0.1 X10*3/uL (0.0-0.2); Eosinophils Absolute Auto 0.2 X10*3/uL (0.0-0.4); Eosinophils Percent Auto 2.8 % (0-4); Hematocrit 42.6 % (42.0-52.0); Imm Gran Abs Auto 0.04 X10*3/uL (0.00-0.03); Imm Gran Pct Auto 0.7 % (0.0-0.4); Lymphocytes Absolute Auto 1.5 X10*3/uL (1.2-4.9); Lymphocytes Percent Auto 25.5 % (20-40); Mean Corpuscular HGB Conc 35.2 g/dl (31.0-36.0); Mean Corpuscular Hemoglobin 27.9 pg (27.0-33.0); Mean Corpuscular Volume 79.3 fL (80.0-98.0); Mean Platelet Volume 9.2 fL (9.4-12.4); Monocytes Absolute Auto 0.7 X10*3/uL (0.1-1.2); Monocytes Percent Auto 11.2 % (2-11); Neutrophils Absolute Auto 3.5 x10*3/uL (2.0-8.3); Neutrophils Percent Auto 58.8 % (45-73); Platelet Count 225 X10*3/uL (160-400); Red Blood Count 5.37 X10*6/uL (4.60-5.80); Red Cell Distribution Width 12.8 % (11.0-16.0)
[2024-05-30 09:25] LABS: Alanine Aminotransferase 120 U/L (0-40); Albumin Level 4.5 g/dL (3.5-5.0); Alkaline Phosphatase 130 U/L (39-117); Anion Gap 14 (12-20); Aspartate Amino Transferase 54 U/L (5-37); Bilirubin Total 0.5 mg/dL (0.0-1.0); Blood Urea Nitrogen 14 mg/dL (9-16); Calcium 10.2 mg/dL (8.4-10.2); Carbon Dioxide 22 mmol/L (22-29); Chloride 106 mmol/L (96-108); Creatinine Clr Calc Pharmacy 142.8; Estimated Glomerular Filt Rate > 60; Glucose Random 102 mg/dL (60-115); Potassium 3.9 mmol/L (3.3-5.1); Sodium 138 mmol/L (135-145); Total Protein 7.8 g/dL (6.5-8.0)
--- NOTE | 2024-05-30 09:40 | ED.CHESTPAIN ---
HPI - Chest Pain General Chief Complaint: Chest Pain Stated Complaint: chest pain Time Seen by Provider: 05/30/24 09:40 Source: patient Mode of arrival: ambulatory Limitations: no limitations History of Present Illness ED Provider: Juan UMANA HPI narrative: 28-year-old male pmhx ADHD, asthma, hyperhidrosis, adjustment disorder, GERD, anxiety, depression presents w/ chest pain in the substernal region w/ radiation to left UE & neck & jaw this all started yesterday lasted 30 minutes went away, this morning patient had sudden onset cp with just sitting there again substernal w/ radiaiton to LUE / shoulder, neck and jaw this was also accompanied with sweating and severe pain, now pain maybe 12/09. He also reports some a/c shortness of breath with this. Tells me he has never had this happen before. Unable to tell me what makes it better or worse. No a/c trauma. No significant life stresses at this time. Denies illicit drug use, alcohol and tobacco. Not on blood thinners. No significant cardiac history or family cardiac hx. Recent travel to [facility] by car last week. Last week he felt like maybe he was getting sick with a cold. Denies fevers, chills, nausea, vomiting, abdominal pain. Related Data Previous Rx's ?Medication ?Instructions ?Recorded clotrimazole 1 % topical cream 1 appl topical BID 4 weeks #45 10/29/23 grams miconazole nitrate 2 % topical 1 appl topical BID #85 grams 10/29/23 powder (Zeasorb AF) escitalopram oxalate 10 mg tablet 10 mg PO DAILY #90 tabs 04/20/24 Allergies Allergy/AdvReac Type Severity Reaction Status Date / Time No Known Allergies Allergy Verified 05/30/24 08:48 Review of Systems Review of Systems: Yes all other systems are reviewed and are negative PMFSH Past Medical History Attestation statement: The following information was validated with the patient. Source: old records reviewed and nursing notes reviewed Medical History Ingrowing nail, right great toe Impacted cerumen of both ears Hyperhidrosis Hyperhidrosis ADHD Asthma Surgical History History of cataract surgery Social History Social History Housing: Apartment Alcohol intake: current Comment: once Q 3 months 1-2 cups Patient Tobacco Use Status: Never used Tobacco Years Smoked: 2 cigarettes in li Smoked in Last 30 Days: No e-Cigarette/Vaping Use: Never Used Second Hand Smoke Exposure: No Use of substances other than those prescribed or required for medical reasons: No Advance Directives: No Do you have a plan to hurt others: No Plan Current occupational status: employed Cognitive needs: No Hearing needs: No Vision needs: Yes Physical Exam Vital Signs: Vital Signs: Last Vital Signs Temp 98.3 F 05/30/24 08:46 Pulse 90 05/30/24 09:49 Resp 19 05/30/24 09:49 BP 138/86 05/30/24 09:49 Pulse Ox 99 05/30/24 09:49 O2 Del Method Room Air 05/30/24 09:49 BMI result Body Mass Index 33.2 vss Appearance: Alert.? Oriented X3.? No acute distress.? Head: Normocephalic, atraumatic, no step-offs or deformities Eyes: Pupils equal, round and reactive to light.? Neck: Normal inspection.? Neck supple.? CVS: Normal heart rate and rhythm.? Pulses normal.? Respiratory: No respiratory distress.? Breath sounds normal.? Abdomen: Soft and nontender.? Skin: Skin warm and dry.? Normal skin color.? Normal skin turgor.? Extremities: No lower extremity edema.? No calf ttp. 5/5 strength to bilateral upper and lower extremities Back: No midline tenderness, no C-spine tenderness, full range of motion, no CVA tenderness bilaterally Neuro: Oriented X 3.? No motor deficit.? No sensory deficit. CN 2-12 intact Course Reevaluation(s) Reevaluation #1: Critical result from the lab critical troponin 2315.5. Patient was in the waiting room immediately spoke to charge nurse patient called back and put into room 20. Time: 09:38 Reevaluation #2: CBC unremarkable. Chemistry no acute findings requiring intervention. Transaminases slightly elevated in 2-1 fashion AST 54, ALT 120, patient denies alcohol use. Alk-phos 130. Added CPK Time: 09:58 Reevaluation #3: Discussed this case with cardiology who recommends a stat echocardiogram. Cardiology Dr. Baltazar did come see patient at the bedside and recommends colchicine 0.6 and ibuprofen as well as hospital admission. Repeat trop pending. Likely myocarditis. NSR on the monitor still Time: 11:16 Medications Administered Discontinued Medications Generic Name Dose Route Start Last Admin Trade Name Christianoq PRN Reason Stop Dose Admin Aspirin 325 mg 05/30/24 09:39 05/30/24 09:59 Aspirin Enteric Coated 325 Mg Tablet.Dr KOCH 05/30/24 09:40 325 mg ONCE ONE Administration Iohexol 100 ml 05/30/24 10:26 05/30/24 10:27 Iohexol 350 Mg/Ml 100 Ml Infus..Btl IV 05/30/24 10:27 70 ml ONCE ONE Administration Medical Decision Making Medical Decision Making [facility] Narrative: 939 28 year old male presents w/ cp w/ radiation to jaw and left arm w/ some a/c shortness of breath PE- patient pale and diaphoretic. History and physical exam concerning for ACS versus cardiomyopathy versus myocarditis versus noncardiac related chest pain versus possible dissection. PE less likely PERC negative and shortness of breath only present with severe chest pain. Plan labs, imaging, EKG. Differential Diagnosis Differential Diagnoses: The differential diagnosis associated with the presentation includes History and physical exam concerning for ACS versus cardiomyopathy versus myocarditis versus noncardiac related chest pain versus possible dissection. PE less likely PERC negative and shortness of breath only present with severe chest pain. Admission/Observation Consideration of admission/observation: Escalation of care including admission/observation considered Likely Consult Healthcare Provider Management of the patient was discussed with: Manager Psychiatry Lab Data [facility] Lab Attestation statement: I reviewed the patient's lab results. 05/30/24 08:57 05/30/24 08:57 Labs: Lab Results 05/30/24 05/30/24 Range/Units 08:57 10:02 WBC 6.0 (4.8-10.8) X10*3/uL RBC 5.37 (4.60-5.80) X10*6/uL Hgb 15.0 (14.0-18.0) g/dl Hct 42.6 (42.0-52.0) % MCV 79.3 L (80.0-98.0) fL MCH 27.9 (27.0-33.0) pg MCHC 35.2 (31.0-36.0) g/dl RDW 12.8 (11.0-16.0) % Plt Count 225 D (160-400) X10*3/uL MPV 9.2 L (9.4-12.4) fL Immature Gran % (Auto) 0.7 H (0.0-0.4) % Neut % (Auto) 58.8 (45-73) % Lymph % (Auto) 25.5 (20-40) % [place] % (Auto) 11.2 H (2-11) % Eos % (Auto) 2.8 (0-4) % Baso % (Auto) 1.0 (0-2) % Lymph # (Auto) 1.5 (1.2-4.9) X10*3/uL [place] # (Auto) 0.7 (0.1-1.2) X10*3/uL Eos # (Auto) 0.2 (0.0-0.4) X10*3/uL Baso # (Auto) 0.1 (0.0-0.2) X10*3/uL Abs Immat Gran (auto) 0.04 H (0.00-0.03) X10*3/uL Absolute Neuts (auto) 3.5 (2.0-8.3) x10*3/uL Absolute Nucleated RBC 0.000 (0.0-0.012) X10*3/uL Nucleated RBC % (auto) 0.0 (0.0-0.2) /100WBC PT 11.9 (11.1-13.3) SEC INR 1.0 (0.9-1.1) Sodium 138 (135-145) mmol/L Potassium 3.9 (3.3-5.1) mmol/L Chloride 106 (96-108) mmol/L Carbon Dioxide 22 (22-29) mmol/L Anion Gap 14 (12-20) BUN 14 (9-16) mg/dL Creatinine 1.00 (0.5-1.4) mg/dL Estim Creat Clear Calc 142.8 Estimated GFR > 60 Random Glucose 102 (60-115) mg/dL Calcium 10.2 (8.4-10.2) mg/dL Total Bilirubin 0.5 (0.0-1.0) mg/dL AST 54 H (5-37) U/L ALT 120 H (0-40) U/L Alkaline Phosphatase 130 H (39-117) U/L Total Creatine Kinase 316 H (38-174) U/L Troponin I High Sens 2315.5 H* (<3.5-35.0) ng/L Total Protein 7.8 (6.5-8.0) g/dL Albumin 4.5 (3.5-5.0) g/dL Influenza Type A (PCR) NEGATIVE (Negative) Influenza Type B (PCR) NEGATIVE (Negative) RSV RNA Qual (PCR) NEGATIVE (Negative) SARS-CoV-2 RNA (RT-PCR) NEGATIVE (Negative) Independent Interpretation I performed an independent interpretation of an: EKG (Vent. Rate : 081 BPM Atrial Rate : 081 BPM P-R Int : 118 ms QRS Dur : 084 ms QT Int : 368 ms P-R-T Axes : 010 031 033 degrees QTc Int : 427 ms Normal sinus rhythm Normal ECG No previous ECGs available ), Plain X-Ray (XR/XR chest 1V IMPRESSION: Normal chest x-ray.) and CT Scan Radiology Impression Discussion of test interpretation with radiology: I have reviewed the radiologist's reading. External Record Review External record reviewed: Office record, Outpatient record and Prior outpatient labs Chronic Conditions Patient?s care impacted by: Other (ADHD, asthma, hyperhidrosis, adjustment disorder, GERD, anxiety, depression) Core Measures AMI core measures followed: Yes Measure exclusions: not indicated Critical Care Time Critical Care Time Critical Care Time: Yes Total Critical Care Time: 45 Attestation: I attest to this time spent taking care of the patient, obtaining history, physical, reviewing labs, imaging, speaking to my attending, specialist or hospitalist. Discharge Plan Discharge Clinical Impression: Myocarditis Patient Disposition: Admitted As Inpatient Print Language: Macedonian
[2024-05-30] MEDS: Aspirin Enteric Coated 325 MG TABLET.DR PO (09:59)
[2024-05-30 10:27] LABS: Prothrombin Time 11.9 SEC (11.1-13.3)
[2024-05-30] MEDS: iohexoL 350 MG/ML 100 ML INFUS..BTL IV (10:27)
[2024-05-30 10:55] LABS: Influenza A PCR NEGATIVE (Negative); Influenza B PCR NEGATIVE (Negative); Resp Syncy Virus RNA Qual PCR NEGATIVE (Negative); SARS COV2 PCR INHOUSE NEGATIVE (Negative)
--- NOTE | 2024-05-30 10:58 | PC.NURSE ---
Awaiting resp panel swab per pharmacy. Pharmacy states that they will tube one up.
--- NOTE | 2024-05-30 11:23 | P.CONCA_ITS ---
History of Present Illness History of Present Illness Date of Service: 05/30/24 Chief complaint: chest pain Narrative: This is a cardiology consultation regarding chest pain and elevated troponins. Patient has no history of cardiac issues. Generally healthy with no limitations in lifestyle. He was at [facility] last weekend and when he returned, has been having some sore throat and viral type symptoms. Yesterday, started noticing chest discomfort across the front of the chest. Also going towards the jaw area and towards the left upper extremity. However, he is nonexertional and can happen randomly. In fact, he was doing a lot of errands as today and active and the pain was not getting worse. Intermittent and can happen any time. Currently, he is saying his pain level is 0-1, essentially resolved. We are asked to see him for further evaluation. Otherwise, denies any major comorbidities. No drug use. No family history of premature CAD or any other major cardiac concerns. Review of Systems 2 Review of Systems: Yes all other systems are reviewed and are negative Constitutional: Constitutional: Reports as per HPI and Reports no additional constitutional complaints Eyes: Eyes: Reports as per HPI and Denies no additional eye complaints ENT: Denies system reviewed and no additional complaints, except as documented and Reports as per HPI Cardiovascular: Cardiovascular: Reports as per HPI, Reports no additional cardiovascular complaints, Denies acrocyanosis, Denies cool extremities, Denies chest pain, Denies leg edema, Denies lightheadedness, Denies palpitations and Denies dyspnea Respiratory: Respiratory: Reports as per HPI, Denies no additional respiratory complaints and Denies dyspnea Gastrointestinal: Gastrointestinal: Reports as per HPI and Denies no additional gastrointestinal complaints Genitourinary: Genitourinary: Reports no additional male genitourinary complaints and Reports as per HPI Musculoskeletal: Musculoskeletal: Reports no additional musculoskeletal complaints and Reports as per HPI Integumentary/Breasts: Skin/Breast: Reports system reviewed and no additional complaints, except as docu Neurologic: Reports system reviewed and no additional complaints, except as documented and Reports as per HPI Psychiatric: Psychiatric: Reports no additional psychiatric complaints and Reports as per HPI Endocrine: Endocrine: Reports no additional endocrine complaints, Reports as per HPI and Denies palpitations Hematologic/Lymphatic: Hematologic/Lymphatic: Reports no additional hematologic/lymphatic complaints and Reports as per HPI Allergic/Immunologic: Allergic/Immunologic: Reports no additional allergic/immunologic complaints and Reports as per HPI [facility] Past Medical History Medical History Ingrowing nail, right great toe Impacted cerumen of both ears Hyperhidrosis Hyperhidrosis ADHD Asthma Family History Family History (Updated 05/30/24 @ 11:23 by Kartik Baltazar MD) Father No problems noted. Mother No problems noted. Surgical History Surgical History History of cataract surgery Social History Social History Housing: Apartment Alcohol intake: current Comment: once Q 3 months 1-2 cups Patient Tobacco Use Status: Never used Tobacco Years Smoked: 2 cigarettes in li Smoked in Last 30 Days: No e-Cigarette/Vaping Use: Never Used Second Hand Smoke Exposure: No Use of substances other than those prescribed or required for medical reasons: No Advance Directives: No Do you have a plan to hurt others: No Plan Current occupational status: employed Cognitive needs: No Hearing needs: No Vision needs: Yes Meds Allergies Allergy/AdvReac Type Severity Reaction Status Date / Time No Known Allergies Allergy Verified 05/30/24 08:48 Active Medications: Current Medications Colchicine (Colchicine 0.6 Mg Tablet) 0.6 mg PO BID ARELI Ibuprofen (Ibuprofen 400 Mg Tablet) 400 mg PO Q4H ARELI Physical Exam 2 Vital Signs: Vital Signs: Last Vital Signs Temp 98.3 F 05/30/24 08:46 Pulse 90 05/30/24 09:49 Resp 19 05/30/24 09:49 BP 138/86 05/30/24 09:49 Pulse Ox 99 05/30/24 09:49 O2 Del Method Room Air 05/30/24 09:49 BMI result Body Mass Index 33.2 Const: General: comfortable and no acute distress O rientation/consciousness: patient oriented x3 HEENT: Other: Unremarkable Head: Yes normal to inspection Neck: Neck: Yes normal visual inspection Chest: Chest palpation & inspection: normal inspection of the chest Resp: Auscultation: clear to auscultation bilaterally Cardio: Palpation: normal PMI Heart sounds: S1 normal heart sound present, S2 normal heart sound present, no gallops, no murmurs and no rubs GI: Palpation (GI): Soft to palpation Back/Spine/Pelvis: Other: unremarkable Skin: General skin exam: no rashes or lesions noted Neuro: General: patient oriented x3 Extrem: General: Yes normal to inspection Psych: Mental Status: mental status grossly normal Objective Labs and Meds 05/30/24 08:57 05/30/24 08:57 Lab results: Laboratory Results - last 24 hr 05/30/24 05/30/24 08:57 10:02 WBC 6.0 RBC 5.37 Hgb 15.0 Hct 42.6 MCV 79.3 L MCH 27.9 MCHC 35.2 RDW 12.8 Plt Count 225 D MPV 9.2 L Immature Gran % (Auto) 0.7 H Neut % (Auto) 58.8 Lymph % (Auto) 25.5 [place] % (Auto) 11.2 H Eos % (Auto) 2.8 Baso % (Auto) 1.0 Lymph # (Auto) 1.5 [place] # (Auto) 0.7 Eos # (Auto) 0.2 Baso # (Auto) 0.1 Abs Immat Gran (auto) 0.04 H Absolute Neuts (auto) 3.5 Absolute Nucleated RBC 0.000 Nucleated RBC % (auto) 0.0 PT 11.9 INR 1.0 Sodium 138 Potassium 3.9 Chloride 106 Carbon Dioxide 22 Anion Gap 14 BUN 14 Creatinine 1.00 Estim Creat Clear Calc 142.8 Estimated GFR > 60 Random Glucose 102 Calcium 10.2 Total Bilirubin 0.5 AST 54 H ALT 120 H Alkaline Phosphatase 130 H Total Creatine Kinase 316 H Troponin I High Sens 2315.5 H* Total Protein 7.8 Albumin 4.5 Influenza Type A (PCR) NEGATIVE Influenza Type B (PCR) NEGATIVE RSV RNA Qual (PCR) NEGATIVE SARS-CoV-2 RNA (RT-PCR) NEGATIVE ECG Interpretation: EKG with sinus rhythm at 81/Min; no significant ST-T changes and otherwise unremarkable. Normal TX and corrected QT. Imaging Radiologist's impression: Impressions Chest X-Ray 05/30/24 09:09 IMPRESSION: Normal chest x-ray. Chest CTA 05/30/24 10:30 IMPRESSION: Essentially normal CT angiogram of the chest. No definite etiology for patient's current presentation is identified. Fleischner guidelines were followed. Assessment and Plan (1) Myocarditis: Status: Acute Plan Baseline EKG is not showing any ischemic findings. Bedside echocardiogram is also grossly unremarkable. To be reviewed in detail once completed. High sensitivity troponin level is 2315. CK slightly high. LFTs are abnormal. Infection screen is still pending. Overall, suspect myocarditis, could be from viral etiologies. Use ibuprofen/colchicine for symptomatic pain relief. Admit to telemetry. Monitor for arrhythmias. Discussed with significant other at bedside. Discussed with ER provider. Procedures Date of Service Date of Service: 05/30/24
[2024-05-30 11:46] LABS: Amphetamine Screen Urine Not Detected (Not Detect); Barbiturates, Urine Not Detected (Not Detect); Benzodiazepines Screen Urine Not Detected (Not Detect); Buprenorphine Scr Not Detected (Not Detect); Cannabinoid Screen Urine Not Detected (Not Detect); Cocaine Screen Urine Not Detected (Not Detect); Fentanyl, urine Not Detected (Not Detect); Methadone Screen, Urine Not Detected (Not Detect); Opiate Screen Urine Not Detected (Not Detect); Oxycodone Screen Urine Not Detected (Not Detect); Phencyclidine Screen Urine Not Detected (Not Detect)
[2024-05-30 11:48] LABS: Ethanol < 10 mg/dL
[2024-05-30 11:50] LABS: Acetaminophen LAB < 3 mcg/mL (<30); Salicylate < 5.0 mg/dL (15-30)
[2024-05-30 11:55] LABS: Monotest Negative (Negative)
[2024-05-30 12:05] LABS: IDNOW Serial# 08D9AD1C; Strep A Nucleic Acid Negative (Negative)
--- NOTE | 2024-05-30 12:17 | P.HPHOSP_ITS ---
<Statement entered by Krista Hanna MD - 05/30/24 15:42> the patient was seen and evaluated with EDWARD Cifuentes. I agree with her note, assessment and plan with the following. In summary, A 28 years old male with PMH of asthma, ovesity, cataract, GERD among others who is presenting with chest pain and SOB found to have Myocarditis. Acute myocarditis Likely viral in origin, pending serologies Continue doxycline 100mg bid until ruled out tick borne disease Initial trop 2300, Trend until it peaks Ibuprofen 400mg q6h and colchicine BID cardiology consult Rest of evaluations by PA note. History of Present Illness Date of Service: 05/30/24 Attending physician on admission: Krista Hanna Chief Complaint: chest pain 28-year-old male with history of mild intermittent asthma, GERD, mood disorder, cataracts, and obesity presented to the ED earlier today for evaluation of chest pain that started yesterday. He reports yesterday developed retrosternal chest pressure/squeezing sensation that started yesterday afternoon. He thought this was related to acid reflux so took Pepto-Bismol and Tums with some improvement. However the pain continued to recur. This morning was radiating into the left upper extremity, jaw, and epigastrium. There was associated shortness of breath, diaphoresis, and lightheadedness. He does recall over the last week having flu-like symptoms including myalgias, low-grade fever, and sore throat. He states he does spend a lot of time outdoors walking but denies any known tick bites. He denies any substance use, cigarette smoking, or regular alcohol use. Since arrival, has been hypertensive to 150/79, vitals otherwise stable. No leukocytosis or anemia. Renal function normal, electrolyte levels normal. AST 54, ALT 120, alkaline phosphatase 120, total CK 316. Initial troponin 2315.5, repeat pending. ESR and CRP pending. Urine tox screen negative. Negative for COVID-19, RSV, influenza. Negative for strep a or mononucleosis. Full RPP pending. CTA chest unremarkable. EKG shows NSR, no ST/T-wave abnormality. In the ED, evaluated by Cardiology with high suspicion for myocarditis. Recommending admission with serial troponins and treatment with ibuprofen and colchicine. Currently comfortable with 1/10 pain. Review of Systems 2 Review of Systems: Yes all other systems are reviewed and are negative [facility] Medical History Ingrowing nail, right great toe Impacted cerumen of both ears Hyperhidrosis Hyperhidrosis ADHD Asthma Family History Father No problems noted. Mother No problems noted. Surgical History History of cataract surgery Social History Housing: Apartment Alcohol intake: current Comment: once Q 3 months 1-2 cups Patient Tobacco Use Status: Never used Tobacco Years Smoked: 2 cigarettes in li Smoked in Last 30 Days: No e-Cigarette/Vaping Use: Never Used Second Hand Smoke Exposure: No Use of substances other than those prescribed or required for medical reasons: No Advance Directives: No Do you have a plan to hurt others: No Plan Current occupational status: employed Cognitive needs: No Hearing needs: No Vision needs: Yes Meds Allergies Allergy/AdvReac Type Severity Reaction Status Date / Time No Known Allergies Allergy Verified 05/30/24 08:48 Active Medications: Current Medications Acetaminophen (Acetaminophen 325 Mg Tablet) 650 mg PO Q6H PRN PRN Reason: Pain, Mild (Pain Scale 1-3), fever or headache Calcium Carbonate (Calcium Carbonate 750 Mg Tab.Chew) 750 mg PO Q4H PRN PRN Reason: Heartburn Colchicine (Colchicine 0.6 Mg Tablet) 0.6 mg PO BID [facility] Doxycycline Monohydrate (Doxycycline Monohydrate 100 Mg Capsule) 100 mg PO Q12H [facility] Enoxaparin Sodium (Enoxaparin Sodium 40 Mg/0.4 Ml Syringe) 40 mg SUBCUT Q24H [facility] Ibuprofen (Ibuprofen 400 Mg Tablet) 400 mg PO Q4H [facility] Magnesium Hydroxide (Milk Of Magnesia 30 Ml Oral.Susp) 30 ml PO DAILY PRN PRN Reason: Constipation Melatonin (Melatonin 3 Mg Tablet) 6 mg PO BEDTIME PRN PRN Reason: Insomnia Omeprazole (Omeprazole 20 Mg Capsule.Dr) 20 mg PO DAILY@0630 [facility] Sodium Chloride (0.9 % Sodium Chloride Flush 3 Ml Syringe) 3 ml IVFLUSH QSHIFT [facility] Physical Exam 2 Vital Signs and Narrative: Vital Signs: Last Vital Signs Temp 98.3 F 05/30/24 08:46 Pulse 89 05/30/24 12:00 Resp 18 05/30/24 12:00 BP 150/79 H 05/30/24 12:00 Pulse Ox 98 05/30/24 12:00 O2 Del Method Room Air 05/30/24 12:00 BMI result Body Mass Index 33.2 Constitutional - Awake and Alert, No apparent distress Eyes - PERRLA, EOMI Cardiovascular - S1S2, RRR, No edema Respiratory - Normal lung expansion, Normal respiratory effort, No respiratory distress, CTA bilaterally Gastrointestinal - NT / ND; +BS; No rebound or guarding - No CVA tenderness Extremities - no calf tenderness bilaterally, no swelling Skin - Warm/Dry Neurological - Alert & oriented x3 Psychological - Appropriate affect Results Labs 05/30/24 08:57 05/30/24 08:57 Labs: Laboratory Results - last 24 hr 05/30/24 05/30/24 05/30/24 08:57 10:02 11:18 MCV 79.3 L MCH 27.9 MCHC 35.2 RDW 12.8 Plt Count 225 D MPV 9.2 L Immature Gran % (Auto) 0.7 H Neut % (Auto) 58.8 Lymph % (Auto) 25.5 [place] % (Auto) 11.2 H Eos % (Auto) 2.8 Baso % (Auto) 1.0 Lymph # (Auto) 1.5 [place] # (Auto) 0.7 Eos # (Auto) 0.2 Baso # (Auto) 0.1 Abs Immat Gran (auto) 0.04 H Absolute Neuts (auto) 3.5 Absolute Nucleated RBC 0.000 Nucleated RBC % (auto) 0.0 PT 11.9 INR 1.0 Anion Gap 14 Estim Creat Clear Calc 142.8 Estimated GFR > 60 Random Glucose 102 Calcium 10.2 Total Bilirubin 0.5 AST 54 H ALT 120 H Alkaline Phosphatase 130 H Total Creatine Kinase 316 H Troponin I High Sens 2315.5 H* Total Protein 7.8 Albumin 4.5 Salicylates Urine Opiates Screen Not Detected Ur Buprenorphine Scrn Not Detected Ur Oxycodone Screen Not Detected Urine Methadone Screen Not Detected Urine Fentanyl Screen Not Detected Acetaminophen Ur Barbiturates Screen Not Detected Ur Phencyclidine Scrn Not Detected Ur Amphetamines Screen Not Detected U Benzodiazepines Scrn Not Detected Urine Cocaine Screen Not Detected U Marijuana (THC) Screen Not Detected Ethyl Alcohol Monoscreen Influenza Type A (PCR) NEGATIVE Influenza Type B (PCR) NEGATIVE RSV RNA Qual (PCR) NEGATIVE SARS-CoV-2 RNA (RT-PCR) NEGATIVE S. pyogenes GrpA CADENCE 05/30/24 05/30/24 11:20 11:45 MCV MCH MCHC RDW Plt Count MPV Immature Gran % (Auto) Neut % (Auto) Lymph % (Auto) [place] % (Auto) Eos % (Auto) Baso % (Auto) Lymph # (Auto) [place] # (Auto) Eos # (Auto) Baso # (Auto) Abs Immat Gran (auto) Absolute Neuts (auto) Absolute Nucleated RBC Nucleated RBC % (auto) PT INR Anion Gap Estim Creat Clear Calc Estimated GFR Random Glucose Calcium Total Bilirubin AST ALT Alkaline Phosphatase Total Creatine Kinase Troponin I High Sens Total Protein Albumin Salicylates < 5.0 L Urine Opiates Screen Ur Buprenorphine Scrn Ur Oxycodone Screen Urine Methadone Screen Urine Fentanyl Screen Acetaminophen < 3 Ur Barbiturates Screen Ur Phencyclidine Scrn Ur Amphetamines Screen U Benzodiazepines Scrn Urine Cocaine Screen U Marijuana (THC) Screen Ethyl Alcohol < 10 Monoscreen Negative Influenza Type A (PCR) Influenza Type B (PCR) RSV RNA Qual (PCR) SARS-CoV-2 RNA (RT-PCR) S. pyogenes GrpA CADENCE Negative Imaging Radiologist's Impressions: Impressions Chest X-Ray 05/30/24 09:09 IMPRESSION: Normal chest x-ray. Chest CTA 05/30/24 10:30 IMPRESSION: Essentially normal CT angiogram of the chest. No definite etiology for patient's current presentation is identified. Fleischner guidelines were followed. Assessment and Plan (1) Myocarditis: Status: Acute Plan 28-year-old male with history of mild intermittent asthma, GERD, mood disorder, cataracts, and obesity admitted for further management of myocarditis. #Acute myocarditis -suspect viral in etiology. Negative COVID, flu, rsv, mono. RPP pending -cannot exclude tick borne illness. Tick serologies and Lyme IGG/IGM w/ reflex western blot pending. Continue doxycline 100mg bid until ruled out -Ibuprofen 400mg q6h and colchicine BID. Add omeprazole 20mg daily -Initial trop 2300, repeat pending. Trend q6h until peaked -ESR/CRP pending. Total CK 300 -EKG non ischemic -cardiology consult -cardiac diet -montior on tele #Mild intermittent asthma -no exacerbation, albuterol prn #GERD -add ppi due to tere NSAID use #Mood disorder -continue home meds #Cataracts -avoid steroids dvt prophylaxis- lovenox full code pt requires inpt stay at least 2 midnights for management of acute myocarditis requiring expert consulation, close cardiac monitoring and serial troponins Quality Stroke Does the patient have a stroke diagnosis?: No VTE Prior VTE?: No VTE Risk Level:: Medical - moderate - high VTE Device Contraindication: Treatment Not Indicated VTE Drug Contraindication: N/A - Med Ordered
--- NOTE | 2024-05-30 12:30 | ECG_ITS ---
Test Reason : chest pain Blood Pressure : / mmHG Vent. Rate : 087 BPM Atrial Rate : 087 BPM P-R Int : 124 ms QRS Dur : 084 ms QT Int : 362 ms P-R-T Axes : 025 028 028 degrees QTc Int : 435 ms Normal sinus rhythm Normal ECG When compared with ECG of 30-MAY-2024 08:47, No significant change was found Referred By: Robby Mason Electronically Signed By:SAMEER DURON
[2024-05-30] MEDS: Doxycycline Monohydrate 100 MG CAPSULE PO (12:42)
[2024-05-30] MEDS: Ibuprofen 400 MG TABLET PO ×3 (12:42→20:18)
[2024-05-30] MEDS: Enoxaparin Sodium 40 MG/0.4 ML SYRINGE SUBCUT (12:42)
[2024-05-30] MEDS: Omeprazole 20 MG CAPSULE.DR PO (12:42)
--- NOTE | 2024-05-30 12:50 | PHA.MEDREC ---
Pharmacy Consult ? Medication Reconciliation Pharmacy has completed the medication reconciliation.
[2024-05-30 12:52] LABS: Adenovirus PCR Not Detected (Not Detect.); Bordetella parapertussis PCR Not Detected (Not Detect.); Bordetella pertussis PCR Not Detected (Not Detect.); Chlamydia pneumoniae PCR Not Detected (Not Detect.); Coronavirus 229E PCR Not Detected (Not Detect.); Coronavirus HKU1 PCR Not Detected (Not Detect.); Coronavirus NL63 PCR Not Detected (Not Detect.); Coronavirus OC43 PCR Not Detected (Not Detect.); Human metapneumovirus PCR Not Detected (Not Detect.); Influenza A PCR Not Detected (Not Detect.); Influenza B PCR Not Detected (Not Detect.); Mycoplasma pneumoniae PCR Not Detected (Not Detect.); Parainfluenza 1 PCR Not Detected (Not Detect.); Parainfluenza 2 PCR Not Detected (Not Detect.); Parainfluenza 3 PCR Not Detected (Not Detect.); Parainfluenza 4 PCR Not Detected (Not Detect.); RSV PCR Not Detected (Not Detect.); Rhino/Enterovirus PCR Not Detected (Not Detect.)
[2024-05-30 12:59] LABS: C Reactive Protein 1.58 mg/dL (< or = 0.50)
[2024-05-30 13:20] LABS: Erythrocyte Sedimentation Rate 7 MM/HR (0-15)
[2024-05-30 13:33] LABS: SARS-CoV-2 PCR Not Detected (Not Detect.)
--- NOTE | 2024-05-30 21:02 | PC.NURSE ---
Pharmacy called about colchicine not stocked in pyxis, will send down.
[2024-05-30] MEDS: Colchicine 0.6 MG TABLET PO (22:04)
[2024-05-31] MEDS: 0.9 % Sodium Chloride Flush 3 ML SYRINGE IVFLUSH ×2 (00:09→07:24)
[2024-05-31] MEDS: Ibuprofen 400 MG TABLET PO ×4 (00:09→11:21)
[2024-05-31] MEDS: Doxycycline Monohydrate 100 MG CAPSULE PO (00:09)
[2024-05-31 00:10] VITALS: BP 140/79; PULSE 80; RESP 17; TEMP 36.4; O2SAT 100
[2024-05-31 00:52] VITALS: BMI 34.0
[2024-05-31 03:45] VITALS: BP 140/87; PULSE 81; RESP 18; TEMP 36.3; O2SAT 98
[2024-05-31 03:53] VITALS: BP 123/74; PULSE 65; RESP 18; TEMP 37; O2SAT 98
[2024-05-31] MEDS: Omeprazole 20 MG CAPSULE.DR PO (06:16)
[2024-05-31 06:43] LABS: Hematocrit 42.3 % (42.0-52.0); Hemoglobin 14.6 g/dl (14.0-18.0); Mean Corpuscular HGB Conc 34.5 g/dl (31.0-36.0); Mean Corpuscular Hemoglobin 27.8 pg (27.0-33.0); Mean Corpuscular Volume 80.4 fL (80.0-98.0); Mean Platelet Volume 9.2 fL (9.4-12.4); Platelet Count 212 X10*3/uL (160-400); Red Blood Count 5.26 X10*6/uL (4.60-5.80)
[2024-05-31 06:57] LABS: Anion Gap 10 (12-20); Blood Urea Nitrogen 15 mg/dL (9-16); Calcium 9.2 mg/dL (8.4-10.2); Carbon Dioxide 26 mmol/L (22-29); Chloride 106 mmol/L (96-108); Creatinine Clr Calc Pharmacy 136.2; Estimated Glomerular Filt Rate > 60; Glucose Random 108 mg/dL (60-115); Potassium 4.2 mmol/L (3.3-5.1); Sodium 138 mmol/L (135-145)
[2024-05-31] MEDS: Colchicine 0.6 MG TABLET PO (07:24)
[2024-05-31 07:28] VITALS: BP 132/82; PULSE 72; RESP 20; TEMP 36.2; O2SAT 98
[2024-05-31] MEDS: Ketorolac Tromethamine 15 MG/ML VIAL IVPUSH (08:16)
--- NOTE | 2024-05-31 08:55 | P.PNCA_ITS ---
Subjective Subjective Date of Service: 05/31/24 Interval history: Feels some pleurtic type pains. Worse with deep breathing. Shallow breathing makes it better. Otherwise okay. With NSAIDs, feeling better. Review of Systems Review of Systems Yes all other systems are reviewed and are negative Constitutional: Reports as per HPI and Reports no additional constitutional complaints Eyes: Reports as per HPI and Denies no additional eye complaints Denies system reviewed and no additional complaints, except as documented and Reports as per HPI Cardiovascular: Reports as per HPI, Reports no additional cardiovascular complaints, Denies acrocyanosis, Denies cool extremities, Reports chest pain, Denies leg edema, Denies lightheadedness, Denies palpitations and Denies dyspnea Respiratory: Reports as per HPI, Denies no additional respiratory complaints and Denies dyspnea Gastrointestinal: Reports as per HPI and Denies no additional gastrointestinal complaints Genitourinary: Reports no additional male genitourinary complaints and Reports as per HPI Musculoskeletal: Reports no additional musculoskeletal complaints and Reports as per HPI Skin/Breast: Reports system reviewed and no additional complaints, except as docu Reports system reviewed and no additional complaints, except as documented and Reports as per HPI Psychiatric: Reports no additional psychiatric complaints and Reports as per HPI Endocrine: Reports no additional endocrine complaints, Reports as per HPI and Denies palpitations Hematologic/Lymphatic: Reports no additional hematologic/lymphatic complaints and Reports as per HPI Allergic/Immunologic: Reports no additional allergic/immunologic complaints and Reports as per HPI Physical Exam Vital Signs: Last Vital Signs Temp 97.2 F 05/31/24 07:28 Pulse 72 05/31/24 07:28 Resp 20 05/31/24 07:28 BP 132/82 05/31/24 07:28 Pulse Ox 98 05/31/24 07:28 O2 Del Method Room Air 05/31/24 07:28 BMI result Body Mass Index 34.0 Const General: comfortable and no acute distress Orientation/consciousness: patient oriented x3 HEENT Other: Unremarkable Head: Yes normal to inspection Neck Neck: Yes normal visual inspection Chest Chest palpation & inspection: normal inspection of the chest Resp Auscultation: clear to auscultation bilaterally Cardio Palpation: normal PMI Heart sounds: S1 normal heart sound present, S2 normal heart sound present, no gallops, no murmurs and no rubs GI Palpation (GI): Soft to palpation Back/Spine/Pelvis Other: unremarkable Skin General skin exam: no rashes or lesions noted Neuro General: patient oriented x3 Extrem General: Yes normal to inspection Psych Mental Status: mental status grossly normal Objective Labs and Meds 05/31/24 06:20 05/31/24 06:20 Lab results: Laboratory Results - last 24 hr 05/30/24 05/30/24 05/30/24 08:57 10:02 11:18 WBC 6.0 RBC 5.37 Hgb 15.0 Hct 42.6 MCV 79.3 L MCH 27.9 MCHC 35.2 RDW 12.8 Plt Count 225 D MPV 9.2 L Immature Gran % (Auto) 0.7 H Neut % (Auto) 58.8 Lymph % (Auto) 25.5 [place] % (Auto) 11.2 H Eos % (Auto) 2.8 Baso % (Auto) 1.0 Lymph # (Auto) 1.5 [place] # (Auto) 0.7 Eos # (Auto) 0.2 Baso # (Auto) 0.1 Abs Immat Gran (auto) 0.04 H Absolute Neuts (auto) 3.5 Absolute Nucleated RBC 0.000 Nucleated RBC % (auto) 0.0 ESR 7 PT 11.9 INR 1.0 Sodium 138 Potassium 3.9 Chloride 106 Carbon Dioxide 22 Anion Gap 14 BUN 14 Creatinine 1.00 Estim Creat Clear Calc 142.8 Estimated GFR > 60 Random Glucose 102 Calcium 10.2 Total Bilirubin 0.5 AST 54 H ALT 120 H Alkaline Phosphatase 130 H Total Creatine Kinase 316 H Troponin I High Sens 2315.5 H* C-Reactive Protein Total Protein 7.8 Albumin 4.5 Salicylates Urine Opiates Screen Not Detected Ur Buprenorphine Scrn Not Detected Ur Oxycodone Screen Not Detected Urine Methadone Screen Not Detected Urine Fentanyl Screen Not Detected Acetaminophen Ur Barbiturates Screen Not Detected Ur Phencyclidine Scrn Not Detected Ur Amphetamines Screen Not Detected U Benzodiazepines Scrn Not Detected Urine Cocaine Screen Not Detected U Marijuana (THC) Screen Not Detected Ethyl Alcohol Respiratory Panel [place] Adenovirus (Rapid PCR) B.pert (TEM-PCR) B.parapertussis DNA PCR C. pneumoniae DNA (PCR) Coronavirus OC43 (PCR) Coronavirus HKU1 (PCR) Coronavirus 229E (PCR) Coronavirus NL63 (PCR) Monoscreen Human Metapneumovir PCR Influenza A (RT-PCR) Influenza Type A (PCR) NEGATIVE Influenza B (RT-PCR) Influenza Type B (PCR) NEGATIVE M. pneumoniae (PCR) Parainfluenza 1 (PCR) Parainfluenza 2 (PCR) Parainfluenza 3 (PCR) Parainfluenza 4 (PCR) RSV (PCR) RSV RNA Qual (PCR) NEGATIVE Entero/Rhino (PCR) SARS-CoV-2 RNA (RT-PCR) NEGATIVE S. pyogenes GrpA CADENCE 05/30/24 05/30/24 05/30/24 11:19 11:20 11:21 WBC RBC Hgb Hct MCV MCH MCHC RDW Plt Count MPV Immature Gran % (Auto) Neut % (Auto) Lymph % (Auto) [place] % (Auto) Eos % (Auto) Baso % (Auto) Lymph # (Auto) [place] # (Auto) Eos # (Auto) Baso # (Auto) Abs Immat Gran (auto) Absolute Neuts (auto) Absolute Nucleated RBC Nucleated RBC % (auto) ESR PT INR Sodium Potassium Chloride Carbon Dioxide Anion Gap BUN Creatinine Estim Creat Clear Calc Estimated GFR Random Glucose Calcium Total Bilirubin AST ALT Alkaline Phosphatase Total Creatine Kinase Troponin I High Sens 5160.1 H* D C-Reactive Protein 1.58 H Total Protein Albumin Salicylates < 5.0 L Urine Opiates Screen Ur Buprenorphine Scrn Ur Oxycodone Screen Urine Methadone Screen Urine Fentanyl Screen Acetaminophen < 3 Ur Barbiturates Screen Ur Phencyclidine Scrn Ur Amphetamines Screen U Benzodiazepines Scrn Urine Cocaine Screen U Marijuana (THC) Screen Ethyl Alcohol < 10 Respiratory Panel [place] See Note Adenovirus (Rapid PCR) Not Detected B.pert (TEM-PCR) Not Detected B.parapertussis DNA PCR Not Detected C. pneumoniae DNA (PCR) Not Detected Coronavirus OC43 (PCR) Not Detected Coronavirus HKU1 (PCR) Not Detected Coronavirus 229E (PCR) Not Detected Coronavirus NL63 (PCR) Not Detected Monoscreen Negative Human Metapneumovir PCR Not Detected Influenza A (RT-PCR) Not Detected Influenza Type A (PCR) Influenza B (RT-PCR) Not Detected Influenza Type B (PCR) M. pneumoniae (PCR) Not Detected Parainfluenza 1 (PCR) Not Detected Parainfluenza 2 (PCR) Not Detected Parainfluenza 3 (PCR) Not Detected Parainfluenza 4 (PCR) Not Detected RSV (PCR) Not Detected RSV RNA Qual (PCR) Entero/Rhino (PCR) Not Detected SARS-CoV-2 RNA (RT-PCR) Not Detected S. pyogenes GrpA CADENCE 05/30/24 05/30/24 05/31/24 11:45 12:50 06:20 WBC 5.0 RBC 5.26 Hgb 14.6 Hct 42.3 MCV 80.4 MCH 27.8 MCHC 34.5 RDW 13.0 Plt Count 212 MPV 9.2 L Immature Gran % (Auto) Neut % (Auto) Lymph % (Auto) [place] % (Auto) Eos % (Auto) Baso % (Auto) Lymph # (Auto) [place] # (Auto) Eos # (Auto) Baso # (Auto) Abs Immat Gran (auto) Absolute Neuts (auto) Absolute Nucleated RBC 0.000 Nucleated RBC % (auto) 0.0 ESR PT INR Sodium 138 Potassium 4.2 Chloride 106 Carbon Dioxide 26 Anion Gap 10 L BUN 15 Creatinine 1.06 Estim Creat Clear Calc 136.2 Estimated GFR > 60 Random Glucose 108 Calcium 9.2 D Total Bilirubin AST ALT Alkaline Phosphatase Total Creatine Kinase Troponin I High Sens 4459.8 H* C-Reactive Protein Total Protein Albumin Salicylates Urine Opiates Screen Ur Buprenorphine Scrn Ur Oxycodone Screen Urine Methadone Screen Urine Fentanyl Screen Acetaminophen Ur Barbiturates Screen Ur Phencyclidine Scrn Ur Amphetamines Screen U Benzodiazepines Scrn Urine Cocaine Screen U Marijuana (THC) Screen Ethyl Alcohol Respiratory Panel [place] Adenovirus (Rapid PCR) B.pert (TEM-PCR) B.parapertussis DNA PCR C. pneumoniae DNA (PCR) Coronavirus OC43 (PCR) Coronavirus HKU1 (PCR) Coronavirus 229E (PCR) Coronavirus NL63 (PCR) Monoscreen Human Metapneumovir PCR Influenza A (RT-PCR) Influenza Type A (PCR) Influenza B (RT-PCR) Influenza Type B (PCR) M. pneumoniae (PCR) Parainfluenza 1 (PCR) Parainfluenza 2 (PCR) Parainfluenza 3 (PCR) Parainfluenza 4 (PCR) RSV (PCR) RSV RNA Qual (PCR) Entero/Rhino (PCR) SARS-CoV-2 RNA (RT-PCR) S. pyogenes GrpA CADENCE Negative Imaging Radiologist's impression: Impressions Chest X-Ray 05/30/24 09:09 IMPRESSION: Normal chest x-ray. Chest CTA 05/30/24 10:30 IMPRESSION: Essentially normal CT angiogram of the chest. No definite etiology for patient's current presentation is identified. Fleischner guidelines were followed. Progress Note: A&P Assessment and plan (1) Myopericarditis: Status: Acute Plan Troponin levels were high. CRP is elevated. CK level slightly high. LFTs are also abnormal but seems chronic rather. Echocardiogram with normal LVEF; normal wall motion. Chest CTA is also within normal limits. Overall, suggestive of viral type myopericarditis/pleuritic presentation. Do not believe this is ACS from coronary stenosis. We can use NSAIDs and colchicine. Follow-up renal function LFTs. We will try to arrange outpatient cardiac MRI. Follow-up in clinic. Avoid any form of strenuous physical activity, exercise for the next few weeks. To return back to the ER if symptoms worsened. Discussed in detail with patient, significant other as well as mother. Discussed with Dr. Hanna. Time Spent With Patient Time: Total time managing care of this patient today ____ minutes. Progress Note: Quality Stroke Does the patient have a stroke diagnosis?: No Procedures Date of Service Date of Service: 05/31/24
--- NOTE | 2024-05-31 11:12 | PM.DS ---
DS: Providers Provider Date of Service: 05/31/24 Date of admission: 05/30/24 12:12 Primary care physician: Isaura Fnag MD Consults: 05/30/24 11:19 Consult to Cardiology Stat Consulting Provider: [facility] Reason for consultation: CP elevated trop 05/30/24 12:10 Consult to Cardiology Routine Consulting Provider: [facility] Reason for consultation: myocarditis DS: Diagnosis Discharge Diagnosis (1) Myopericarditis: Status: Acute (2) Fatty liver: Status: Acute DS: Summary Hospital Course Hospital Course: Admission note HPI 28-year-old male with history of mild intermittent asthma, GERD, mood disorder, cataracts, and obesity presented to the ED earlier today for evaluation of chest pain that started yesterday. He reports yesterday developed retrosternal chest pressure/squeezing sensation that started yesterday afternoon. He thought this was related to acid reflux so took Pepto-Bismol and Tums with some improvement. However the pain continued to recur. This morning was radiating into the left upper extremity, jaw, and epigastrium. There was associated shortness of breath, diaphoresis, and lightheadedness. He does recall over the last week having flu-like symptoms including myalgias, low-grade fever, and sore throat. He states he does spend a lot of time outdoors walking but denies any known tick bites. He denies any substance use, cigarette smoking, or regular alcohol use. Since arrival, has been hypertensive to 150/79, vitals otherwise stable. No leukocytosis or anemia. Renal function normal, electrolyte levels normal. AST 54, ALT 120, alkaline phosphatase 120, total CK 316. Initial troponin 2315.5, repeat pending. ESR and CRP pending. Urine tox screen negative. Negative for COVID-19, RSV, influenza. Negative for strep a or mononucleosis. Full RPP pending. CTA chest unremarkable. EKG shows NSR, no ST/T-wave abnormality. In the ED, evaluated by Cardiology with high suspicion for myocarditis. Recommending admission with serial troponins and treatment with ibuprofen and colchicine. Currently comfortable with 1/10 pain. Hospital course The patient was admitted for treatment of Acute myocarditis with likely viral etiology. he tested negative for viral panel. Negative COVID, flu, rsv, mono. RPP pending. Started on Ibuprofen 400mg q6h and colchicine BID along with omeprazole 20mg daily as his troponin peaked at 5160 and started trending down. Evaluated by marine fireman as Echo showed normal EF with no WMA. To be discharged on same medications and follow with cardiology as outpatient for further work up. Chest CTA is also within normal limits.cardiology will try to arrange outpatient cardiac MRI. Discharge plan Avoid any form of strenuous physical activity, exercise for the next few weeks. Continue Colchicine twice daily for the next 3 months Take Ibuprofen 3 times a day for the next week then as needed Start Omeprazole for stomach protection We advise you to lose weight to avoid chronic liver damage in the future To repeat blood work in 2 weeks To follow with dr Baltazar in clinic in a month return back to the ER if symptoms worsened The patient made quicker than expected recovery and will not need 2 overnight hospital stay. Time Attestation Discharge Coordination Time (in mins): 36 Quality: Safe Use of Opioids Does Pt have an Active Cancer Diagnosis on the Problem List?: No Quality: Stroke Does the patient have a stroke diagnosis?: No Physical Exam Vital Signs: Vital Signs: Last Vital Signs Temp 97.2 F 05/31/24 07:28 Pulse 72 05/31/24 07:28 Resp 20 05/31/24 07:28 BP 132/82 05/31/24 07:28 Pulse Ox 98 05/31/24 07:28 O2 Del Method Room Air 05/31/24 07:28 BMI result Body Mass Index 34.0 Const: Other: Constitutional : Awake, interactive, not in distress Neck : Normal inspection, Supple Cardiovascular : RRR, no JVP, no lower extremity edema Respiratory : good bilateral air entry, no crackles, wheezes or rhonchi Gastrointestinal: soft, lax, Normal bowel sounds, Non tender Skin : Warm, Dry Neurological : Alert & oriented x3, No focal deficit , CN 2-12 within normal DS: Data Data Completed and Pending Labs on day of discharge: Laboratory Results - last 24 hr 05/30/24 05/30/24 05/30/24 08:57 11:18 11:19 WBC RBC Hgb Hct MCV MCH MCHC RDW Plt Count MPV Absolute Nucleated RBC Nucleated RBC % (auto) ESR 7 Sodium Potassium Chloride Carbon Dioxide Anion Gap BUN Creatinine Estim Creat Clear Calc Estimated GFR Random Glucose Calcium Troponin I High Sens C-Reactive Protein Salicylates Urine Opiates Screen Not Detected Ur Buprenorphine Scrn Not Detected Ur Oxycodone Screen Not Detected Urine Methadone Screen Not Detected Urine Fentanyl Screen Not Detected Acetaminophen Ur Barbiturates Screen Not Detected Ur Phencyclidine Scrn Not Detected Ur Amphetamines Screen Not Detected U Benzodiazepines Scrn Not Detected Urine Cocaine Screen Not Detected U Marijuana (THC) Screen Not Detected Ethyl Alcohol Respiratory Panel Aquino See Note Adenovirus (Rapid PCR) Not Detected B.pert (TEM-PCR) Not Detected B.parapertussis DNA PCR Not Detected C. pneumoniae DNA (PCR) Not Detected Coronavirus OC43 (PCR) Not Detected Coronavirus HKU1 (PCR) Not Detected Coronavirus 229E (PCR) Not Detected Coronavirus NL63 (PCR) Not Detected Monoscreen Human Metapneumovir PCR Not Detected Influenza A (RT-PCR) Not Detected Influenza B (RT-PCR) Not Detected M. pneumoniae (PCR) Not Detected Parainfluenza 1 (PCR) Not Detected Parainfluenza 2 (PCR) Not Detected Parainfluenza 3 (PCR) Not Detected Parainfluenza 4 (PCR) Not Detected RSV (PCR) Not Detected Entero/Rhino (PCR) Not Detected SARS-CoV-2 RNA (RT-PCR) Not Detected S. pyogenes GrpA CADENCE 05/30/24 05/30/24 05/30/24 11:20 11:21 11:45 WBC RBC Hgb Hct MCV MCH MCHC RDW Plt Count MPV Absolute Nucleated RBC Nucleated RBC % (auto) ESR Sodium Potassium Chloride Carbon Dioxide Anion Gap BUN Creatinine Estim Creat Clear Calc Estimated GFR Random Glucose Calcium Troponin I High Sens 5160.1 H* D C-Reactive Protein 1.58 H Salicylates < 5.0 L Urine Opiates Screen Ur Buprenorphine Scrn Ur Oxycodone Screen Urine Methadone Screen Urine Fentanyl Screen Acetaminophen < 3 Ur Barbiturates Screen Ur Phencyclidine Scrn Ur Amphetamines Screen U Benzodiazepines Scrn Urine Cocaine Screen U Marijuana (THC) Screen Ethyl Alcohol < 10 Respiratory Panel Aquino Adenovirus (Rapid PCR) B.pert (TEM-PCR) B.parapertussis DNA PCR C. pneumoniae DNA (PCR) Coronavirus OC43 (PCR) Coronavirus HKU1 (PCR) Coronavirus 229E (PCR) Coronavirus NL63 (PCR) Monoscreen Negative Human Metapneumovir PCR Influenza A (RT-PCR) Influenza B (RT-PCR) M. pneumoniae (PCR) Parainfluenza 1 (PCR) Parainfluenza 2 (PCR) Parainfluenza 3 (PCR) Parainfluenza 4 (PCR) RSV (PCR) Entero/Rhino (PCR) SARS-CoV-2 RNA (RT-PCR) S. pyogenes GrpA CADENCE Negative 05/30/24 05/31/24 12:50 06:20 WBC 5.0 RBC 5.26 Hgb 14.6 Hct 42.3 MCV 80.4 MCH 27.8 MCHC 34.5 RDW 13.0 Plt Count 212 MPV 9.2 L Absolute Nucleated RBC 0.000 Nucleated RBC % (auto) 0.0 ESR Sodium 138 Potassium 4.2 Chloride 106 Carbon Dioxide 26 Anion Gap 10 L BUN 15 Creatinine 1.06 Estim Creat Clear Calc 136.2 Estimated GFR > 60 Random Glucose 108 Calcium 9.2 D Troponin I High Sens 4459.8 H* C-Reactive Protein Salicylates Urine Opiates Screen Ur Buprenorphine Scrn Ur Oxycodone Screen Urine Methadone Screen Urine Fentanyl Screen Acetaminophen Ur Barbiturates Screen Ur Phencyclidine Scrn Ur Amphetamines Screen U Benzodiazepines Scrn Urine Cocaine Screen U Marijuana (THC) Screen Ethyl Alcohol Respiratory Panel Aquino Adenovirus (Rapid PCR) B.pert (TEM-PCR) B.parapertussis DNA PCR C. pneumoniae DNA (PCR) Coronavirus OC43 (PCR) Coronavirus HKU1 (PCR) Coronavirus 229E (PCR) Coronavirus NL63 (PCR) Monoscreen Human Metapneumovir PCR Influenza A (RT-PCR) Influenza B (RT-PCR) M. pneumoniae (PCR) Parainfluenza 1 (PCR) Parainfluenza 2 (PCR) Parainfluenza 3 (PCR) Parainfluenza 4 (PCR) RSV (PCR) Entero/Rhino (PCR) SARS-CoV-2 RNA (RT-PCR) S. pyogenes GrpA CADENCE Discharge Plan Discharge Anticipated Discharge Date/Time: 05/31/24 11:02 Patient Disposition: Home, Self-Care Discharge Diagnosis: Myopericarditis Referrals: Po,Isaura Rodriguez MD [Primary Care Provider] - 1 Week Discharge Medications: New ibuprofen 400 mg Tablet 400 mg PO TIDWM Qty: 90 0RF omeprazole 20 mg Capsule,Delayed Release(Dr/Ec) 20 mg PO DAILY@0630 Qty: 90 0RF colchicine [Colcrys] 0.6 mg Tablet 0.6 mg PO BID Qty: 180 0RF Continued escitalopram oxalate 10 mg tablet 10 mg PO DAILY Qty: 90 0RF Discharge Orders: Discharge Order (Routine); Ordered 05/31/24 Ordered By: Krista Hanna Diet: Advance to usual diet Activity on Discharge: As tolerated Stand Alone Forms: Patient Portal Discharge page Print Language: Czech Other Ambulatory Orders: Basic Metabolic Panel (Routine) Timeframe: 2 Weeks Facility: [facility] - Location: Laboratory Ordered By: Krista Hanna Liver Panel (Routine) Timeframe: 2 Weeks Facility: [facility] - Location: Laboratory Ordered By: Krista Hanna Care Plan Goals: Avoid any form of strenuous physical activity, exercise for the next few weeks. Continue Colchicine twice daily for the next 3 months Take Ibuprofen 3 times a day for the next week then as needed Start Omeprazole for stomach protection We advise you to lose weight to avoid chronic liver damage in the future To repeat blood work in 2 weeks To follow with dr Baltazar in clinic in a month return back to the ER if symptoms worsened Health Concerns: Read below Plan of Treatment: Read below Assessment: Read below
--- NOTE | 2024-05-31 11:34 | MHC.CM.PN ---
EMR REVIEWED, PT W/MYOCARDITIS, CM MET W/PT AND PT'S S.O., MOTHER AND PT'S 6MOS OLD SON AT BEDSIDE, CM REPORTS HE IS FULLY INDEP, DENIES USE OF DME/SERVICES AND GOAL FOR DC IS HOME NO SERVICES AND OUTPT FOLLOW-UP W/CARDIOLOGY WHO WILL SCHEDULE A CARDIAC MRI PER THEIR NOTE. PT VERIFIES PCP IS EMILIA KOCH AND PT EDUCATED ON AND COMPLETED A HCP NAMING HIS S.O. VON THAKKAR [phone] HIS [facility] AND HIS MOTHER [place] TRAN [phone] HIS ALTERNATE. COPY UPLOADED TO [facility] AND PLACED IN CHART. ANTIC PT DISCHARGING TODAY SELF CARE W/OUT PT FOLLOW UP W/CARDIOLOGY, FAMILY AT BEDSIDE FOR TRANSPORT
[2024-05-31 13:18] LABS: Lyme Abs Screen <0.90 index
[2024-06-01 07:27] LABS: A. Phagocytphilium DNA,RT-PCR NOT DETECTED (NOT DETECTED); Babesia Microti DNA, RT-PCR NOT DETECTED (NOT DETECTED); Borrelia Miyamotoi,DNA RT-PCR NOT DETECTED (NOT DETECTED); E.Chaffeensis DNA RT-PCR NOT DETECTED (NOT DETECTED); Lyme(Borrelia ssp)DNA RT-PCR NOT DETECTED (NOT DETECTED)
== END 2024-05-31 12:16 | disposition home or self-care (01) | DRG 207 ==
LOC: HO.ED 11:12 → HO.EDOVER 12:22 → HO.IMC 23:23
PROVIDERS: Physician Assistant; Admitting Provider Physician Assistant; Emergency Provider Emergency Medicine; PCP Internal Medicine; Visit Provider Student in an Organized Health Care Education/Training Program
DX: I40.0 Infective myocarditis (principal); K76.0 Fatty (change of) liver, not elsewhere classified; B97.89 Other viral agents as the cause of diseases classified elsewhere; F39 Unspecified mood [affective] disorder; J45.20 Mild intermittent asthma, uncomplicated; K21.9 Gastro-esophageal reflux disease without esophagitis; H26.9 Unspecified cataract; F90.9 Attention-deficit hyperactivity disorder, unspecified type; Z20.822 Contact with and (suspected) exposure to COVID-19; Z79.899 Other long term (current) drug therapy
CPT/HCPCS: 0241U; 36415; 71045; 71275; 80048; 80053; 80143; 80179; 80307; 82550; 84484; 85025; 85027; 85610; 85652; 86140; 86308; 86617; 86618; 87468; 87469; 87478; 87484; 87633; 87651; 87798; 93005; 93306; 99285; J1650; J1885; Q9957; Q9967

== ENCOUNTER → 2024-05-30 08:56 | Outpatient (BNV) | payer OTHER, SELFPAY | PROVIDERS: Emergency Provider Emergency Medicine; PCP Internal Medicine; Visit Provider Internal Medicine | DX: I51.4 Myocarditis, unspecified (principal); R07.9 Chest pain, unspecified | CPT/HCPCS: 93010; 93306; 99223; 99233 ==

== ENCOUNTER → 2024-05-30 12:12 | Outpatient (BNV) | payer OTHER, SELFPAY | PROVIDERS: Admitting Provider Physician Assistant; Emergency Provider Emergency Medicine; PCP Internal Medicine; Visit Provider Physician Assistant | DX: I51.4 Myocarditis, unspecified (principal) | CPT/HCPCS: 99222; 99239 ==

== ENCOUNTER 2024-06-03 13:33 | Outpatient (AMB) | payer OTHER, SELFPAY ==
[2024-06-03 13:37] VITALS: BP 136/80; PULSE 93; O2SAT 97; BMI 33.1
--- NOTE | 2024-06-03 13:37 | MHC.PC.OV ---
Vital Signs 06/03/24 13:37 Height 6 ft Weight 244 lb 0.6 oz BMI 33.1 BP 136/80 Blood Pressure Location Lt brachial Position Sitting Pulse 93 Pulse Source Pulse Oximeter Pulse Oximetry (%) 97 Oxygen Delivery Method Room Air Intake Visit Reasons: [facility] Discharge 7.2 Myocarditis Detention Officer Required: No Allergies No Known Allergies Allergy (Verified 06/03/24 13:37) Medication List - Last Reconciled 06/03/24 by Lesley Bolden PA-C colchicine (Colcrys) 0.6 mg PO BID escitalopram oxalate 10 mg PO DAILY ibuprofen 400 mg PO TIDWM omeprazole 20 mg PO DAILY@0630 Tobacco use date assessed: 06/03/24 Dental Screening Dental Screen Date: 10/29/23 HPI [facility] Discharge 7.2 Myocarditis HPI Details 28-year-old male with past medical history of GERD, fatty liver, hypercholesterolemia, anxiety, and depression last seen by Dr. Fang 10/29/2023 coming in for hospital discharge follow-up. Patient was seen in [facility] ED 05/30/2024 for substernal chest pain with radiation to left upper extremity and neck. Troponin was elevated, CBC, EKG and chemistry unremarkable with elevated LFTs. Seen by Cardiology who recommended colchicine, ibuprofen, and stat echo along with admission. Patient was admitted for acute myocarditis likely viral. Echo showed normal ejection fraction, and troponins trending down.? Patient was discharged? 05/31/2024 with colchicine b.i.d. For 3 months, ibuprofen b.i.d. For 1 week, and omeprazole. Recommend outpatient cardiac MRI and follow up with Cardiology in 1 month. Today he tells us his chest pain has been improving with the medication. He notes when he does not take the medication the chest pain is worsened. He still has mild intermittent chest pain worse with activity. He is still avoiding strenuous activity at home. He also mentions the omeprazole has been helping his GERD symptoms and has seen great improvement. He is concerned because of fatigue which he mentions is throughout the day most days and generalized body aches. This concern has been going on for several years despite improvement in exercise and diet. [facility] Medical History Ingrowing nail, right great toe Impacted cerumen of both ears Hyperhidrosis Hyperhidrosis ADHD Asthma Surgical History History of cataract surgery Family History Father No problems noted. Mother No problems noted. Social History Household Members: Significant Other Housing: Apartment Do you presently have visiting nurse or other home services: No Alcohol intake: current Comment: once Q 3 months 1-2 cups Patient Tobacco Use Status: Never used Tobacco Years Smoked: 2 cigarettes in li e-Cigarette/Vaping Use: Never Used Second Hand Smoke Exposure: No service: No Current occupational status: employed Cognitive needs: No Hearing needs: No Vision needs: Yes Questionnaire Thrive Questionnaire Date Thrive assessed: 05/31/24 AUDIT C Alcohol Use Questionnaire (AUDIT-C) 1. How often do you have a drink containing alcohol?: Monthly or less 2. How many drinks containing alcohol do you have on a typical day when you are drinking?: 1 or 2 3. How often do you have six or more drinks on one occasion?: Never Total Score: 1 Score Reviewed/Action Taken: No KYLE-7 AMB Questionnaire KYLE-7 Date KYLE - 7 assessed: 08/13/23 Source: Developed by Drs. Calvin Em, Alejandra Keys, Randall Hussein and colleagues, with an educational ld from [employer]. Review of Systems Const Denies chills, Reports daytime sleepiness, Reports fatigue, Denies fever(s) and Denies weakness ENT Reports no additional complaints Card Details: Mild intermittent chest pain Denies irregular heart rhythm, Denies leg edema, Denies radiating jaw, neck or arm pain and Reports dyspnea on exertion Resp Details: No shortness of breath at rest Denies cough and Reports dyspnea on exertion GI Denies constipation, Denies dyspepsia, Denies heartburn, Denies diarrhea, Denies nausea and Denies vomiting Musc Details: Generalized joint pain Skin/Breast Reports system reviewed and no additional complaints, except as documented Neuro Reports no additional complaints and Denies weakness Endo Reports fatigue Physical exam (Primary Care) Vital Signs: Last Vital Signs Pulse 93 06/03/24 13:37 BP 136/80 06/03/24 13:37 Pulse Ox 97 06/03/24 13:37 Oxygen Delivery Method Room Air 06/03/24 13:37 BMI result Body Mass Index 33.1 Tobacco/Smoking Status: Tobacco use Status Tobacco use date assessed 06/03/24 06/03/24 13:42 Patient Tobacco Use Status Never used Tobacco 06/03/24 13:42 e-Cigarette/Vaping Use Never Used 06/03/24 13:42 Thrive Assessment: Date of Thrive Assessment Date Thrive assessed 05/31/24 06/03/24 13:42 Const General: cooperative, healthy appearing, comfortable and no acute distress Orientation/consciousness: patient oriented x3 HENMT Head: Yes normal to inspection Ears: hearing grossly normal bilaterally Mouth: tongue normal (Large tongue) Eyes General: appearance normal, both eyes and all related structures Resp Effort & Inspection: normal respiratory effort Auscultation: clear to auscultation bilaterally, no crackles, no rales, no rhonchi and no wheezes Cardio Rate: regular rate Rhythm: regular rhythm Skin General skin exam: no rashes or lesions noted Neuro General: patient oriented x3 and gait normal Extrem General: Yes normal to inspection, Yes no pedal edema and No edema Assessment and Plan Assessment & Plan (1) Myocarditis: Code(s): I51.4 - Myocarditis, unspecified Qualifiers: Chronicity: acute Myocarditis type: unspecified Qualified Code(s): I40.9 - Acute myocarditis, unspecified Plan: Patient diagnosed with myocarditis 05/30/2024 after viral infection. Is currently on colchicine for the next 3 months, and Ibuprofen 3 times a day for the next week then as needed along with omeprazole. Patient instructed to take medications with food. He is seen improvement in his chest pain although still experiences some discomfort intermittently. Is scheduled to follow up with Cardiology at the end of May for repeat lab testing and possible cardiac MRI. Continue to avoid strenuous activity. (2) Fatigue: Code(s): R53.83 - Other fatigue Qualifiers: Fatigue type: chronic, unspecified Qualified Code(s): R53.82 - Chronic fatigue, unspecified Plan: Patient has long history of fatigue and generalized body aches. States most day he wakes up tired and finds himself falling asleep on the couch. Partner reports snoring. He currently wears a mouth guard to prevent teeth grinding. CBC and electrolytes are within normal limits. We will order for sleep study to rule out obstructive sleep apnea. (3) GERD (gastroesophageal reflux disease): Code(s): K21.9 - Gastro-esophageal reflux disease without esophagitis Qualifiers: Esophagitis presence: without esophagitis Qualified Code(s): K21.9 - Gastro-esophageal reflux disease without esophagitis Plan: Patient has history of untreated GERD. Was previously using Tums and Pepto-Bismol for management. Since starting the omeprazole has seen a great improvement in his symptoms and would like to continue on this medication. Plan Thank you for allowing me to participate in the care of this patient. I personally spent 30 minutes reviewing, examining and charting on this patient. Orders: Orders RT home sleep study Today G47.10 - Hypersomnia, unspecified Coding Level of Care Code Est Pt Level 4 (88380) Diagnoses Acute myocarditis, unspecified myocarditis type I40.9 Chronicity: acute Myocarditis type: unspecified Chronic fatigue R53.82 Fatigue type: chronic, unspecified Gastroesophageal reflux disease without esophagitis K21.9 Esophagitis presence: without esophagitis
== END 2024-06-03 14:09 | disposition home or self-care (01) ==
PROVIDERS: PCP Internal Medicine
DX: I40.9 Acute myocarditis, unspecified (principal); R53.82 Chronic fatigue, unspecified; K21.9 Gastro-esophageal reflux disease without esophagitis
CPT/HCPCS: 99214

== ENCOUNTER 2024-06-29 09:57 | Outpatient (AMB) | payer OTHER, SELFPAY ==
--- NOTE | 2024-06-29 10:26 | MHC.OFFVIS ---
Vital Signs 06/29/24 10:27 Height 6 ft Weight 240 lb 4.862 oz BMI 32.6 BP 122/70 Blood Pressure Location Lt brachial Position Sitting Pulse 98 Pulse Source Pulse Oximeter Intake Visit Reasons: [facility] dc fu - myocarditis Allergies No Known Allergies Allergy (Verified 06/03/24 13:37) Medication List - Last Reconciled 06/29/24 by Kartik Baltazar MD colchicine (Colcrys) 0.6 mg PO BID escitalopram oxalate 10 mg PO DAILY ibuprofen 400 mg PO TIDWM omeprazole 20 mg PO DAILY@0630 HPI Comments Details: Mya returns for follow-up after recent hospitalization. He was admitted to hospital with chest pain and elevated troponins. He was kept got for a weekend and when he returned, he was having sore throat and viral type symptoms. Then developed chest pain. Nonexertional discomfort. At that time, elevated biomarkers and overall the presentation was suggestive of myopericarditis. Did not appear like angina. He was treated with NSAIDs and colchicine. He states that as long as he is taking the colchicine, he feels quite good. Some days he can still feel some discomfort but then he takes NSAIDs and then gets back to normal. Otherwise fully functional without any major limitations. No previous cardiac issues. Echocardiogram at the time of hospitalization was completely normal. [facility] Medical History Ingrowing nail, right great toe Impacted cerumen of both ears Hyperhidrosis Hyperhidrosis ADHD Asthma Surgical History History of cataract surgery Family History Father No problems noted. Mother No problems noted. Social History Household Members: Significant Other Housing: Apartment Do you presently have visiting nurse or other home services: No Alcohol intake: current Comment: once Q 3 months 1-2 cups Patient Tobacco Use Status: Never used Tobacco Years Smoked: 2 cigarettes in li e-Cigarette/Vaping Use: Never Used Second Hand Smoke Exposure: No service: No Current occupational status: employed Cognitive needs: No Hearing needs: No Vision needs: Yes Review of Systems Const Denies weakness ENT Denies dizziness Card Denies chest pain, Denies chest pain with activity, Denies syncope, Denies rapid heart rate, Denies pedal edema, Denies edema, Denies leg edema, Denies lightheadedness, Denies palpitations, Denies dyspnea, Denies dyspnea on exertion and Denies orthopnea Resp Denies cough, Denies dyspnea and Denies dyspnea on exertion GI Denies hematochezia and Denies change in stool character Musc Denies abnormal gait, Denies muscle cramps, Denies muscle weakness, Denies numbness, Denies radiating pain into limb and Denies tingling Neuro Denies abnormal gait, Denies dizziness, Denies syncope, Denies numbness, Denies tingling and Denies weakness Endo Denies palpitations Physical Exam Vital Signs: Last Vital Signs Pulse 98 06/29/24 10:27 BP 122/70 06/29/24 10:27 BMI result Body Mass Index 32.6 Const General: comfortable and no acute distress Orientation/consciousness: patient oriented x3 HEENT Other: Unremarkable Head: Yes normal to inspection Neck Neck: Yes normal visual inspection Chest Chest palpation & inspection: normal inspection of the chest Resp Auscultation: clear to auscultation bilaterally Cardio Palpation: normal PMI Heart sounds: S1 normal heart sound present, S2 normal heart sound present, no gallops, no murmurs and no rubs GI Palpation (GI): Soft to palpation Back/Spine/Pelvis Other: unremarkable Skin General skin exam: no rashes or lesions noted Neuro General: patient oriented x3 Extrem General: Yes normal to inspection Psych Mental Status: mental status grossly normal Assessment & Plan Assessment & Plan (1) Myopericarditis: Code(s): I31.9 - Disease of pericardium, unspecified Category: Medical Plan Cardiac data reviewed. EKG within normal limits. Echocardiogram with normal LVEF, 55-60%, no wall motion abnormalities and otherwise unremarkable. Elevated troponins, CK levels, CRP, abnormal LFTs and overall thought to represent inflammatory state/myopericarditis. For management purposes, he can continue colchicine/NSAIDs as he finds pretty good symptomatic relief with that. Probably for about 3 months or so. Further workup with a cardiac MRI recommended. This was already arranged few weeks back but not yet scheduled. Will follow-up on this. May repeat labs including inflammatory markers. He is avoiding strenuous activity for now and keep it that way. Discussed with significant other. Total time spent including review of data, counseling, documentation, coordination of care 31 minutes. Orders: Orders C Reactive Protein Today I31.9 - Disease of pericardium, unspecified Comprehensive Met. Panel Today I31.9 - Disease of pericardium, unspecified Erythrocyte Sedimentation Rate Today I31.9 - Disease of pericardium, unspecified Coding Level of Care Code Est Pt Level 4 (27658) Diagnoses Myopericarditis I31.9
[2024-06-29 10:27] VITALS: BP 122/70; PULSE 98; BMI 32.6
== END 2024-06-29 11:52 | disposition home or self-care (01) ==
PROVIDERS: PCP Internal Medicine; Visit Provider Internal Medicine
DX: I31.9 Disease of pericardium, unspecified (principal)
CPT/HCPCS: 99214

== ENCOUNTER → 2024-06-29 09:57 | Outpatient (BNVA) | payer OTHER, SELFPAY | PROVIDERS: PCP Internal Medicine; Visit Provider Internal Medicine | DX: I31.9 Disease of pericardium, unspecified (principal) | CPT/HCPCS: 99212 ==

== ENCOUNTER → 2024-07-26 09:06 | Outpatient (REF) | payer OTHER, SELFPAY | LOC: HO.SL 09:06 | PROVIDERS: PCP Internal Medicine | DX: G47.10 Hypersomnia, unspecified (principal) | CPT/HCPCS: 95806 ==

== ENCOUNTER → 2024-07-26 09:36 | Outpatient (BNV) | payer OTHER, SELFPAY | PROVIDERS: PCP Internal Medicine; Visit Provider Internal Medicine | DX: G47.33 Obstructive sleep apnea (adult) (pediatric) (principal) | CPT/HCPCS: 95806 ==

== ENCOUNTER 2024-09-30 09:30 | Outpatient (REF) | payer OTHER, SELFPAY ==
[2024-09-30 11:40] LABS: Alanine Aminotransferase 117 U/L (0-40); Albumin Level 4.6 g/dL (3.5-5.0); Alkaline Phosphatase 104 U/L (39-117); Anion Gap 12 (12-20); Aspartate Amino Transferase 45 U/L (5-37); Bilirubin Total 0.6 mg/dL (0.0-1.0); Blood Urea Nitrogen 15 mg/dL (9-16); C Reactive Protein 0.59 mg/dL (< or = 0.50); Calcium 10.2 mg/dL (8.4-10.2); Carbon Dioxide 25 mmol/L (22-29); Chloride 106 mmol/L (96-108); Estimated Glomerular Filt Rate > 60; Glucose Random 97 mg/dL (60-115); Potassium 4.1 mmol/L (3.3-5.1); Sodium 139 mmol/L (135-145); Total Protein 7.7 g/dL (6.5-8.0)
== END 2024-09-30 09:31 | disposition home or self-care (01) ==
LOC: HO.LAB 09:30
PROVIDERS: Internal Medicine; PCP Internal Medicine; Visit Provider Internal Medicine
DX: I31.9 Disease of pericardium, unspecified (principal)
CPT/HCPCS: 36415; 80053; 85652; 86140

== ENCOUNTER 2024-10-31 09:02 | Outpatient (AMB) | payer OTHER, SELFPAY ==
[2024-10-31 09:14] VITALS: BP 120/78; PULSE 81; O2SAT 97; BMI 31.9
--- NOTE | 2024-10-31 09:14 | A.OFFPC_ITS ---
Vital Signs 10/31/24 09:14 Height 6 ft Weight 235 lb 8 oz BMI 31.9 BP 120/78 Blood Pressure Location Lt brachial Position Sitting Pulse 81 Pulse Source Pulse Oximeter Pulse Oximetry (%) 97 Oxygen Delivery Method Room Air Intake Visit Reasons: Annual Exam Medical Assistant Dermatology Required: No Accompanied by: Self / Same As Patient Allergies No Known Allergies Allergy (Verified 10/31/24 09:15) Medication List - Last Reconciled 10/31/24 by Lesley Bolden PA-C escitalopram oxalate 10 mg PO DAILY ibuprofen 400 mg PO TIDWM omeprazole 20 mg PO DAILY@0630 Tobacco use date assessed: 10/31/24 Dental Screening Dental Screen Date: 10/31/24 Did you have a dental visit in the last 12 months?: Yes Did you have a dental problem in the last 6 months where you did not have access to dental care?: No Was dental information given to patient?: Patient has dentist HPI Annual Exam HPI Details 28-year-old male with past medical histo ry of GERD, fatty liver d isease, hypercholesterolemia, anxiety and depression last seen May 2024 coming in for annual exam.? In review of the notes patient had sleep study done 08/17/2024 showed very mild sleep apnea advised conservative measures with positional therapy in the lateral position and weight reduction. Patient states he has been struggling with a good diet and has seen nutrition in the past which she found beneficial but due to time constraints would not be able to do this again. He has been following with the bean picker machine operator who referred him to GI for elevated LFTs. He was previously being seen by a counselor for depression and anxiety she states has been worsening but has not been seeing a counselor in many months. He also would like to have his cortisol tested due to hypersomnolence and easy irritability. Lastly he does mentioned he has been having dryness on the right pinky finger which we will wax and wane and improves with skin hydration. [facility] Medical History Disease of pericardium, unspecified Ingrowing nail, right great toe Impacted cerumen of both ears Hyperhidrosis Hyperhidrosis ADHD Asthma Surgical History History of cataract surgery Family History Father No problems noted. Mother No problems noted. Social History Household Members: Significant Other Housing: Apartment Do you presently have visiting nurse or other home services: No Alcohol intake: current Comment: once Q 3 months 1-2 cups Patient Tobacco Use Status: Never used Tobacco Years Smoked: 2 cigarettes in li e-Cigarette/Vaping Use: Never Used Second Hand Smoke Exposure: No service: No Current occupational status: employed Cognitive needs: No Hearing needs: No Vision needs: Yes Questionnaire PHQ-9 Over the last 2 weeks, how often have you been bothered by any of the following problems? 1. Little interest or pleasure in doing things: more than half the days 2. Feeling down, depressed, or hopeless: more than half the days 3. Trouble falling or staying asleep, or sleeping too much: more than half the days 4. Feeling tired or having little energy: more than half the days 5. Poor appetite or overeating: nearly every day 6. Feeling bad about yourself - or that you are a failure or have let yourself or your family down: nearly every day 7. Trouble concentrating on things, such as reading the newspaper or watching television: several days 8. Moving or speaking so slowly that other people could have noticed. Or the opposite - being so fidgety or restless that you have been moving around a lot more than usual: more than half the days 9. Thoughts that you would be better off or of hurting yourself in some way: not at all Total score: 17 Depression Screening Interpretation: Positive Depression Screening Follow-up: Other (on waiting list for counseling at [facility] ) Depression Screening Done: Yes 59301 - PHQ-9 Billing: Yes Source: Developed by Drs. Calvin Em, Alejandra Keys, Randall Hussein and colleagues, with an educational ld from [employer]. Thrive Questionnaire Date Thrive assessed: 10/31/24 I am a: Patient What is your living situation today?: I have a steady place to live Within the past 12 months, did the food you bought not last and you didn't have the money to get more?: Never true Within the past 12 months, did you worry whether your food would run out before you got money to buy more?: Never true Do you have trouble paying for medicines?: No Do you have trouble getting transportation to medical appointments?: No Do you have trouble paying your heating and electricity bill?: No Do you have trouble taking care of your child, family member or friend?: No Do you have trouble with day-to-day activities such as bathing, preparing meals, shopping, managing finances, etc.?: No Are you currently unemployed and looking for a job?: No Are you interested in more education?: No Please select the resources that you would like help with: None Currently or been in a relationship where the following occur: No concerns reported THRIVE Score: 0 AUDIT C Alcohol Use Questionnaire (AUDIT-C) 1. How often do you have a drink containing alcohol?: Monthly or less 2. How many drinks containing alcohol do you have on a typical day when you are drinking?: 1 or 2 3. How often do you have six or more drinks on one occasion?: Never Total Score: 1 Score Reviewed/Action Taken: No KYLE-7 AMB Questionnaire KYLE-7 Date KYLE - 7 assessed: 10/31/24 Feeling nervous, anxious, or on edge: 0 = Not at all Not being able to stop or control worryin = Not at all Worrying too much about different things: 0 = Not at all Trouble relaxin = Not at all Being so restless that it is hard to sit still: 0 = Not at all Becoming easily annoyed or irritable: 0 = Not at all Feeling afraid as if something awful might happen: 0 = Not at all Total KYLE-7 score (0-4 normal; 5-9 mild; 10-14 moderate; 15-21 severe): 0 Source: Developed by Drs. Calvin Em, Alejandra Keys, Randall Hussein and colleagues, with an educational ld from [employer]. Review of Systems Const Denies body aches, Denies fatigue, Denies fever(s), Denies frequent falls, Denies headache(s) and Denies weakness Eyes Reports no additional complaints and Denies change in vision ENT Denies dysphagia, Denies dizziness, Denies facial pain, Denies headache(s), Denies nasal congestion and Denies odynophagia Card Denies chest pain, Denies syncope, Denies irregular heart rhythm, Denies leg edema, Denies lightheadedness and Denies dyspnea Resp Denies cough and Denies dyspnea GI Denies constipation, Denies dysphagia, Denies dyspepsia, Denies diarrhea, Denies nausea, Denies odynophagia and Denies vomiting Denies dysuria, Denies urinary frequency, Denies urinary hesitancy and Denies urinary urgency Musc Denies back pain and Denies myalgias Skin/Breast Reports system reviewed and no additional complaints, except as documented Neuro Denies dizziness, Denies syncope, Denies frequent falls, Denies headache(s) and Denies weakness Psych Reports no additional complaints Endo Denies fatigue Physical exam (Primary Care) Vital Signs: Last Vital Signs Pulse 81 10/31/24 09:14 BP 120/78 10/31/24 09:14 Pulse Ox 97 10/31/24 09:14 Oxygen Delivery Method Room Air 10/31/24 09:14 BMI result Body Mass Index 31.9 Tobacco/Smoking Status: Tobacco use Status Tobacco use date assessed 10/31/24 10/31/24 09:27 Patient Tobacco Use Status Never used Tobacco 10/31/24 09:27 e-Cigarette/Vaping Use Never Used 10/31/24 09:27 PHQ-9: PHQ-9 Score PHQ-9: Total score 17 10/31/24 09:27 Depression Screening Interpretation: Positive Depression Screening Follow-up: Other (on waiting list for counseling at [facility] ) Thrive Assessment: Date of Thrive Assessment Date Thrive assessed 10/31/24 10/31/24 09:27 Currently or been in a relationship where the following occur: No concerns reported Const General: cooperative, healthy appearing, comfortable and no acute distress Orientation/consciousness: patient oriented x3 HENMT Head: Yes normocephalic Ears: hearing grossly normal bilaterally, external ears normal, TM's normal bilaterally and EAC's normal General nose exam: Normal external nose present Face and sinus: Yes normal facial exam and Yes sinuses nontender Mouth: Normal oral and palatal mucosa present and tongue normal Throat: Yes posterior oropharynx normal Eyes General: appearance normal, both eyes and all related structures Conjunctivae: conjunctivae normal Pupils: Equal, round and reactive pupils present EOM: EOMs intact bilaterally and No Nystagmus present Neck Neck: Yes normal visual inspection, Yes full ROM and Yes no lymphadenopathy Chest Chest palpation & inspection: normal inspection of the chest Resp Effort & Inspection: normal respiratory effort Auscultation: clear to auscultation bilaterally, no crackles, no rales, no rhonchi, no wheezes and breath sounds present Cardio Rate: regular rate Rhythm: regular rhythm Peripheral pulses: radial pulses present and dorsalis pedis present GI Inspection: Yes normal to inspection and No Abdominal wall edema Palpation (GI): Soft to palpation, not firm and nontender Auscultation: normal bowel sounds Rectal Exam - Male: Yes deferred General: Yes no CVA tenderness Back/Spine/Pelvis Back: no CVA tenderness Skin Other: Eczematous rash on the radial aspect of the right palm and dry skin on the right pinky finger Neuro General: patient oriented x3 Cranial nerves: Yes Equal, round and reactive pupils present, Yes Midline tongue present, Yes Ability to bilaterally elevate shoulders present and No Nystagmus present Gait exam (Neuro): Normal gait present Extrem General: Yes normal to inspection, Yes full ROM, No no pedal edema and No edema Psych Speech and movement: Normal speech and movement present Affect: normal affect Insight: Good insight present (Psych) Judgement: Good judgement present (Psych) Coding Level of Care Code Est Pt Level 3 (19836) Est Pt Prev Care 18-39y(12707) Diagnoses Hypersomnia G47.10 Other depression F32.89 Depression Type: other depression Anxiety F41.9 Hypercholesterolemia E78.00 Adjustment disorder F43.20 Fatty liver K76.0 Annual physical exam Z00.00 Obesity (BMI 30-39.9) E66.9 Gastroesophageal reflux disease without esophagitis K21.9 Esophagitis presence: without esophagitis Dermatitis L30.9 Additional Codes PHQ-9 - 11559 - PHQ-9 Billing: Yes ([id number]) Assessment & Plan Assessment & Plan (1) Hypersomnia: Code(s): G47.10 - Hypersomnia, unspecified Category: Medical Plan: Sleep study completed showed mild sleep apnea advise positional therapy and weight loss. We will order for morning cortisol levels as well. (2) Depression: Code(s): F32.A - Depression, unspecified Category: Medical Qualifiers: Depression Type: other depression Qualified Code(s): F32.89 - Other specified depressive episodes Plan: Presently on escitalopram 10 mg doing well on this medication. Patient would like a counselor and we will check with his insurance to see what is available. (3) Anxiety: Code(s): F41.9 - Anxiety disorder, unspecified Category: Medical Plan: Presently on escitalopram 10 mg doing well on this medication. (4) Hypercholesterolemia: Code(s): E78.00 - Pure hypercholesterolemia, unspecified Category: Medical Plan: Avoid foods that are high in cholesterol such as red meat, fried foods, eggs and baked goods. Triglyceride goal of less than 150 and LDL goal of less than 130. Ordered for updated blood work. (5) Adjustment disorder: Comment: Therapist Fred OLIVA Q 2 week, NOW (09/2023) [facility] Code(s): F43.20 - Adjustment disorder, unspecified Category: Medical Plan: No longer following with a counselor but we will check with his insurance to see what will be covered. (6) Fatty liver: Code(s): K76.0 - Fatty (change of) liver, not elsewhere classified Category: Medical Plan: Healthy diet and regular exercise is encouraged. Continue to monitor liver function testing. Referred to GI specialist by his bean picker machine operator. (7) Annual physical exam: Code(s): Z00.00 - Encounter for general adult medical examination without abnormal findings Category: Medical Plan: Patient is up-to-date on all recommended routine screenings and vaccinations for his age. (8) Obesity (BMI 30-39.9): Code(s): E66.9 - Obesity, unspecified Category: Medical Plan: Healthy diet and regular exercise is encouraged. (9) GERD (gastroesophageal reflux disease): Code(s): K21.9 - Gastro-esophageal reflux disease without esophagitis Category: Medical Qualifiers: Esophagitis presence: without esophagitis Qualified Code(s): K21.9 - Gastro-esophageal reflux disease without esophagitis Plan: Avoid trigger foods such as citrus, tomato products, soda, caffeine, spicy foods and other foods that may be irritating to your stomach. Avoid laying flat 3-4 hours after eating and elevate the head of the bed 30 degrees to prevent acid from moving into the esophagus. Continue on omeprazole (10) Dermatitis: Code(s): L30.9 - Dermatitis, unspecified Category: Medical Plan: Patient has dermatitis consistent eczematous rash. We will trial steroid cream for 2 weeks followed by maintenance hydration with a topical emollients such as Aquaphor, Vaseline or Eucerin. Advised to avoid irritants and harsh chemicals on the skin. Follow up if rash worsens or does not improve. Plan This note was constructed using voice recognition software. While every effort has been made to ensure accuracy and parking enforcement manager, still areas may have been included sometimes these areas may affect the content or meeting of the given symptoms. Total time spent caring for the patient today was 30 minutes. This includes time spent before the visit reviewing the chart, time spent during the visit, and time spent after the visit and documentation. Orders: Orders Lipid Panel Today E78.00 - Pure hypercholesterolemia, unspecified Cortisol Random Today F41.9 - Anxiety disorder, unspecified, G47.10 - Hypersomnia, unspecified Medications: New triamcinolone acetonide 0.1% 1 appl topical DAILY 15 grams 0RF Refilled omeprazole 20 mg PO DAILY@0630 90 caps 0RF
== END 2024-10-31 10:15 | disposition home or self-care (01) ==
PROVIDERS: PCP Internal Medicine
DX: Z00.00 Encounter for general adult medical examination without abnormal findings (principal); G47.10 Hypersomnia, unspecified; E66.9 Obesity, unspecified; Z68.31 Body mass index [BMI] 31.0-31.9, adult; F32.89 Other specified depressive episodes; F41.9 Anxiety disorder, unspecified; E78.00 Pure hypercholesterolemia, unspecified; F43.20 Adjustment disorder, unspecified; K76.0 Fatty (change of) liver, not elsewhere classified; K21.9 Gastro-esophageal reflux disease without esophagitis; L30.9 Dermatitis, unspecified

== ENCOUNTER → 2024-10-31 09:02 | Outpatient (BNVA) | payer OTHER, SELFPAY | PROVIDERS: PCP Internal Medicine | DX: Z00.00 Encounter for general adult medical examination without abnormal findings (principal); G47.10 Hypersomnia, unspecified; F32.89 Other specified depressive episodes; F41.9 Anxiety disorder, unspecified; E78.00 Pure hypercholesterolemia, unspecified; E66.9 Obesity, unspecified; K21.9 Gastro-esophageal reflux disease without esophagitis; L30.9 Dermatitis, unspecified | CPT/HCPCS: 96127; 99212; 99395 ==

== ENCOUNTER 2024-12-05 16:01 | Outpatient (REF) | payer OTHER, SELFPAY ==
--- NOTE | ~2024-12-05 | XR_ITS ---
CLINICAL HISTORY: R05.9 - Cough, unspecified 2 views of the chest. Comparison 05/30/2024. Findings: Heart size is normal. There is no consolidation. No pleural effusion is seen. Impression: No consolidation. This document has been electronically signed by: Alfredo García MD on 12/05/2024 17:13:50
== END 2024-12-05 16:02 | disposition home or self-care (01) ==
LOC: HO.XRAY 16:01
PROVIDERS: PCP Internal Medicine
DX: R05.9 Cough, unspecified (principal); J32.9 Chronic sinusitis, unspecified
CPT/HCPCS: 71046; 96127; 99212

== ENCOUNTER 2024-12-05 16:01 | Outpatient (AMB) | payer OTHER, SELFPAY ==
--- NOTE | 2024-12-05 16:10 | MHC.PC.OV ---
Vital Signs 12/05/24 16:12 Height 6 ft Weight 241 lb BMI 32.7 BP 120/80 Blood Pressure Location Lt brachial Position Sitting Pulse 86 Pulse Source Pulse Oximeter Pulse Oximetry (%) 98 Oxygen Delivery Method Room Air Intake Visit Reasons: possible sinus infection? Intake Note: Patient is here to follow up on possible sinus infection. Post covid symptoms Coughing, sinus pressure, green mucus, SOB, heavy feeling in chest. OTC with some relief. Tank Truck Loader Required: No Robotype Operator: Present Accompanied by: Spouse Allergies No Known Allergies Allergy (Verified 12/05/24 16:11) Tobacco use date assessed: 12/05/24 Dental Screening Dental Screen Date: 12/05/24 Did you have a dental visit in the last 12 months?: Yes Did you have a dental problem in the last 6 months where you did not have access to dental care?: No Was dental information given to patient?: Patient has dentist HPI possible sinus infection? HPI Details 28-year-old male with past medical history of GERD, fatty liver disease, hypercholesterolemia, anxiety and depression last seen 10/2024 coming in for acute problem. Today he tells us he had a COVID-19 infection November 23 and initially was improving from COVID-19 and then suddenly symptoms started to worsen. In the last week he has been having worsening shortness of breath with exercise due to congestion with dark green mucus. He also mentions having increased sinus pressure and pain along with a headache. [facility] Medical History Disease of pericardium, unspecified Ingrowing nail, right great toe Impacted cerumen of both ears Hyperhidrosis Hyperhidrosis ADHD Asthma Surgical History History of cataract surgery Family History Father No problems noted. Mother No problems noted. Social History Household Members: Significant Other Housing: Apartment Do you presently have visiting nurse or other home services: No Alcohol intake: current Comment: once Q 3 months 1-2 cups Patient Tobacco Use Status: Never used Tobacco Years Smoked: 2 cigarettes in li e-Cigarette/Vaping Use: Never Used Second Hand Smoke Exposure: No service: No Current occupational status: employed Cognitive needs: No Hearing needs: No Vision needs: Yes Questionnaire PHQ-9 Over the last 2 weeks, how often have you been bothered by any of the following problems? 1. Little interest or pleasure in doing things: more than half the days 2. Feeling down, depressed, or hopeless: more than half the days 3. Trouble falling or staying asleep, or sleeping too much: more than half the days 4. Feeling tired or having little energy: more than half the days 5. Poor appetite or overeating: nearly every day 6. Feeling bad about yourself - or that you are a failure or have let yourself or your family down: nearly every day 7. Trouble concentrating on things, such as reading the newspaper or watching television: several days 8. Moving or speaking so slowly that other people could have noticed. Or the opposite - being so fidgety or restless that you have been moving around a lot more than usual: more than half the days 9. Thoughts that you would be better off or of hurting yourself in some way: not at all Total score: 17 Depression Screening Interpretation: Positive Depression Screening Follow-up: Other (on waiting list for counseling at [facility] ) Depression Screening Done: Yes 56954 - PHQ-9 Billing: Yes Source: Developed by Drs. Calvin Em, Alejandra Keys, Randall Hussein and colleagues, with an educational ld from [employer]. Thrive Questionnaire Date Thrive assessed: 12/05/24 I am a: Patient What is your living situation today?: I have a steady place to live Within the past 12 months, did the food you bought not last and you didn't have the money to get more?: Never true Within the past 12 months, did you worry whether your food would run out before you got money to buy more?: Never true Do you have trouble paying for medicines?: No Do you have trouble getting transportation to medical appointments?: No Do you have trouble paying your heating and electricity bill?: No Do you have trouble taking care of your child, family member or friend?: No Do you have trouble with day-to-day activities such as bathing, preparing meals, shopping, managing finances, etc.?: No Are you currently unemployed and looking for a job?: No Are you interested in more education?: No Please select the resources that you would like help with: None Currently or been in a relationship where the following occur: No concerns reported THRIVE Score: 0 AUDIT C Alcohol Use Questionnaire (AUDIT-C) 1. How often do you have a drink containing alcohol?: Monthly or less 2. How many drinks containing alcohol do you have on a typical day when you are drinking?: 1 or 2 Total Score: 1 KYEL-7 AMB Questionnaire KYLE-7 Date KYLE - 7 assessed: 12/05/24 Feeling nervous, anxious, or on edge: 0 = Not at all Not being able to stop or control worryin = Not at all Worrying too much about different things: 0 = Not at all Trouble relaxin = Not at all Being so restless that it is hard to sit still: 0 = Not at all Becoming easily annoyed or irritable: 0 = Not at all Feeling afraid as if something awful might happen: 0 = Not at all Total KYLE-7 score (0-4 normal; 5-9 mild; 10-14 moderate; 15-21 severe): 0 Source: Developed by Drs. Calvin Em, Alejandra Keys, Randall Hussein and colleagues, with an educational ld from [employer]. Review of Systems Const Reports body aches, Reports chills, Denies fever(s), Reports headache(s) and Denies poor appetite Eyes Reports no additional complaints ENT Denies dysphagia, Denies dizziness, Reports headache(s), Reports nasal discharge, Denies odynophagia, Reports sinus pain, Reports sinus pressure and Reports sore throat Card Denies chest pain, Denies syncope, Denies edema, Denies irregular heart rhythm, Denies lightheadedness and Denies dyspnea Resp Reports cough and Denies dyspnea GI Denies abdominal pain, Denies constipation, Denies dysphagia, Denies diarrhea, Denies nausea, Denies odynophagia and Denies vomiting Reports no additional complaints Musc Reports no additional complaints and Denies abnormal gait Skin/Breast Reports system reviewed and no additional complaints, except as documented Neuro Denies abnormal gait, Denies dizziness, Denies syncope and Reports headache(s) Psych Reports no additional complaints Physical exam (Primary Care) Vital Signs: Last Vital Signs Pulse 86 12/05/24 16:12 BP 120/80 12/05/24 16:12 Pulse Ox 98 12/05/24 16:12 Oxygen Delivery Method Room Air 12/05/24 16:12 BMI result Body Mass Index 32.7 Tobacco/Smoking Status: Tobacco use Status Tobacco use date assessed 12/05/24 12/05/24 16:18 Patient Tobacco Use Status Never used Tobacco 12/05/24 16:18 e-Cigarette/Vaping Use Never Used 12/05/24 16:18 PHQ-9: PHQ-9 Score PHQ-9: Total score 17 12/05/24 16:19 Depression Screening Interpretation: Positive Depression Screening Follow-up: Other (on waiting list for counseling at [facility] ) Thrive Assessment: Date of Thrive Assessment Date Thrive assessed 12/05/24 12/05/24 16:18 Currently or been in a relationship where the following occur: No concerns reported Const General: cooperative, healthy appearing, comfortable and no acute distress Orientation/consciousness: patient oriented x3 HENMT Head: Yes normocephalic Ears: hearing grossly normal bilaterally, TM's normal bilaterally and EAC's normal General nose exam: Normal external nose present and No nasal discharge present Face and sinus: Yes normal facial exam Mouth: Normal oral and palatal mucosa present and oropharynx normal Throat: Yes posterior oropharynx normal Eyes General: appearance normal, both eyes and all related structures Conjunctivae: conjunctivae normal Neck Neck: Yes full ROM and Yes no lymphadenopathy Resp Effort & Inspection: normal respiratory effort Auscultation: clear to auscultation bilaterally, no crackles, no rales, no rhonchi and no wheezes Cardio Rate: regular rate Rhythm: regular rhythm Skin General skin exam: no rashes or lesions noted Neuro General: patient oriented x3 Gait exam (Neuro): Normal gait present Extrem General: Yes normal to inspection, Yes full ROM and No edema Psych Affect: normal affect Attitude: cooperative Insight: Good insight present (Psych) Judgement: Good judgement present (Psych) Coding Level of Care Code Est Pt Level 4 (76170) Diagnoses Cough R05.9 Sinusitis J32.9 Additional Codes PHQ-9 - 69327 - PHQ-9 Billing: Yes ([id number]) Assessment & Plan Assessment & Plan (1) Cough: Code(s): R05.9 - Cough, unspecified Category: Medical Plan: Patient complaining of dry nonproductive cough with absence fevers but does have body aches and chills. He has concern for pneumonia and chest x-ray was ordered which was negative. Use Mucinex as needed for productive cough and benzonatate for dry cough. (2) Sinusitis: Code(s): J32.9 - Chronic sinusitis, unspecified Category: Medical Plan: Patient's history and presentation was consistent with sinusitis patient having sinus pressure and sinus tenderness along with headaches. Does have history of recent viral illness initially improving and then worsening. We will treat with amoxicillin twice daily for 7 days. Advised patient to reach out if symptoms worsen or do improve. Plan This note was constructed using voice recognition software. While every effort has been made to ensure accuracy and exterior door installer, still areas may have been included sometimes these areas may affect the content or meeting of the given symptoms. Total time spent caring for the patient today was 20 minutes. This includes time spent before the visit reviewing the chart, time spent during the visit, and time spent after the visit and documentation. Orders: Orders XR chest 2V 12/05/24 R05.9 - Cough, unspecified Medications: New benzonatate 100 mg PO BID PRN 20 caps 0RF cough
[2024-12-05 16:12] VITALS: BP 120/80; PULSE 86; O2SAT 98; BMI 32.7
== END 2024-12-05 16:37 | disposition home or self-care (01) ==
PROVIDERS: PCP Internal Medicine
DX: R05.9 Cough, unspecified (principal); J32.9 Chronic sinusitis, unspecified

== ENCOUNTER → 2024-12-05 16:46 | Outpatient (BNV) | payer OTHER, SELFPAY | PROVIDERS: PCP Internal Medicine; Visit Provider Radiology Diagnostic Radiology | DX: R05.9 Cough, unspecified (principal) | CPT/HCPCS: 71046 ==